=== PATIENT | female | born 1930 | race Caucasian/White ===

== ENCOUNTER 2018-02-21 12:13 | Emergency (ER) | payer MEDICARE ==
--- NOTE | 2018-02-21 13:10 | ED ---
Head Injury - HPI Summary HPI Summary: Patient is an 87-year-old female who presents emergency department for a fall and head injury that occurred roughly just prior to arrival. Patient resides at home by herself. Her daughter checks on her 3 times a day. Patient has a history of dementia and high blood pressure. Patient's daughter states she refuses to take her high blood pressure medications. Patient's daughter states that she brought patient breakfast this morning and went to work. She states that patient has not been sick recently and had no complaints this morning such as fever, chest pain, shortness of breath, lightheadedness, dizziness, abdominal pain, vomiting or diarrhea. She states that meals to [place] would have dropped off patient's unsure around 10:30. She believes patient fell shortly after as a bystander found her on the ground and called 911 shortly after that time. Patient was found outside underneath the carport. No report of loss of consciousness. Patient is unsure what happened or how she fell. Patient's daughter states it is not uncommon for patient not to remember fall. In the ER patient complains of head pain and low back pain. Symptoms are moderate in severity. Movement makes symptoms worse. Rest makes symptoms better. 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 Pain Intensity: 6 - Allergies/Home Medications Allergies/Adverse Reactions: Allergies Allergy/AdvReac Type Severity Reaction Status Date / Time No Known Allergies Allergy Verified 05/07/14 09:13 PMH/Surg Hx/FS Hx/Imm Hx Previously Healthy: Yes Musculoskeletal History: Denies: Other Musculoskeletal History - Surgical History Surgery Procedure, Year, and Place: TOTAL LEFT HIP Infectious Disease History: No Infectious Disease History: Denies: Traveled Outside the [place] in Last 30 Days - Social History Occupation: Retired Lives: Alone Alcohol Use: None Substance Use Type: Reports: None Smoking Status (MU): Never Smoked Tobacco Review of Systems Constitutional: Negative Negative: Fever, Chills Eyes: Negative ENT: Negative Cardiovascular: Negative Negative: Palpitations, Chest Pain Respiratory: Negative Negative: Shortness Of Breath, Cough Gastrointestinal: Negative Negative: Abdominal Pain, Vomiting, Diarrhea, Nausea Genitourinary: Negative Positive: Other - Low back pain Positive: Other - Posterior scalp lacertion Positive: Headache. Negative: Weakness, Paresthesia, Numbness, Syncope, Slurred Speech All Other Systems Reviewed And Are Negative: Yes Physical Exam Triage Information Reviewed: Yes Vital Signs On Initial Exam: Initial Vitals Temp Pulse Resp BP Pulse Ox 97.2 F 77 16 180/99 98 02/21/18 12:27 02/21/18 12:27 02/21/18 12:27 02/21/18 12:27 02/21/18 12:27 Vital Signs Reviewed: Yes Appearance: Positive: Thin - Patient sitting up in bed in no acute distress. Daughter present. Head/Face: Positive: Other - 1.5 cm, linear laceration noted to the mid aspect of the posterior scalp. Minimal active bleeding. Eyes: Positive: Normal Neck: Positive: Supple, Nontender Respiratory/Lung Sounds: Positive: Clear to Auscultation, Breath Sounds Present Cardiovascular: Positive: Normal, RRR Abdomen Description: Positive: Nontender, Soft Musculoskeletal: Positive: Other - Full strength and range of motion in all 4 extremities. Pain on palpation to the lumbar spine. Neurological: Positive: Normal, CN Intact II-III, Facial Symmetry, Speech Normal. Negative: Disoriented, Facial Droop, Slurred Speech, Dysphagia, Pronator Drift Present Psychiatric: Positive: Affect/Mood Appropriate Procedures - Laceration/Wound Repair 1 Location: head - Patient elected not to use local anesthetics given only a few guille. Description: Irregular Length, Depth and Shape: 1.5 cm irregular Betadine Prep?: No Irrigated w/ Saline (ccs): 50 Laceration/Wound Explored: clean Closure: Single Layer Suture Type: Other - 3 guille are used to approximate wound Layer Closure?: No Sterile Dressing Applied?: No Diagnostics - Vital Signs Vital Signs Temp Pulse Resp BP Pulse Ox 02/21/18 12:27 97.2 F 77 16 180/99 98 - Laboratory Result Diagrams: 02/21/18 13:11 02/21/18 13:11 Lab Statement: Any lab studies that have been ordered have been reviewed, and results considered in the medical decision making process. Head Injury Course/Dx Course Of Treatment: Patient presenting to the ER after an unwitnessed fall. Patient has history of dementia and is a poor historian. She is afebrile with stable vital signs. Pt.'s only complaints are headache and low back pain. We will obtain basic workup and imaging. Last tetanus immunization was last year. CBC shows mild elevation of WBC at 12.5. CMP is unremarkable. Negative troponin. Urinalysis is negative for infection. CT scans of the head, neck and lumbar spine show chronic changes without acute findings, reading per radiology. Chest x-ray is negative for acute findings, reading per radiology. EKG done at 1306 shows a sinus rhythm of 80 beats per min the left axis deviation, no ST elevation or depression, similar to prior tracing. Simple scalp laceration was repaired as noted above. On reexamination patient was sitting up, interactive. Results were discussed with patient's daughter. Pt.' s daughter is comfortable taking her home. Results discussed with Dr. Dominguez who agrees with discharging patient. Advised patient started to call PCP tomorrow for a close follow-up appointment. Suture removal in 5-7 days. To keep wound clean and dry. Can take Tylenol for pain as directed if needed. To return to ER if symptoms change or worsen. - Diagnoses Differential Diagnosis/HQI/PQRI: Cerebral Contusion, Cervical Sprain, Concussion With LOC, Concussion Without LOC, Hematoma, Intracranial Bleed, Laceration, Skull Fracture Provider Diagnoses: Fall, Scalp laceration, Lumbar strain Discharge - Sign-Out/Discharge Documenting (check all that apply): Discharge/Admit/Transfer - Discharge Plan Condition: Good Disposition: HOME Patient Education Materials: Fall Prevention for Older Adults (ED), Head Injury (ED), Low Back Strain (ED), Staple Care (ED) Referrals: Mynor Fam MD [Primary Care Provider] - Additional Instructions: Call PCP tomorrow for an appointment Keep wound clean and dry Staple removal in 5-7 days Apply ice intermittently Tylenol for pain as directed Return to ER if symptoms change or worsen - Billing Disposition and Condition Condition: GOOD Disposition: Home
[2018-02-21 13:22] LABS: ABS Basophils 0.1 10^3/ul (0-0.2); ABS Eosinophils 0 10^3/ul (0-0.6); ABS Monocytes 0.6 10^3/ul (0-0.8); ABS Neutrophils 10.8 10^3/ul (1.5-7.7); ABS Nucleated RBC 0 10^3/ul; Eosinophil % 0.3 % (0-6); Hematocrit 40 % (35-47); Hemoglobin 13.3 g/dl (12.0-16.0); Lymphocyte % 7.6 % (25-47); Mean Corpuscular HGB Conc 34 g/dl (31-36); Mean Corpuscular Hemoglobin 30 pg (27-31); Mean Corpuscular Volume 89 fL (80-97); Mean Platelet Volume 8.2 um3 (7.4-10.4); Nucleated Red Blood Cells % 0; Platelet Count 294 10^3/ul (150-450); Red Blood Count 4.45 10^6/ul (4.00-5.40); Red Cell Distribution Width 15 % (10.5-15); White Blood Count 12.5 10^3/ul (3.5-10.8)
[2018-02-21 13:51] LABS: EGFR Non-African American 87.4 (>60)
[2018-02-21 14:12] LABS: Urine Appearance Clear; Urine Blood Negative (Negative); Urine Color Yellow; Urine Ketones 1+ (Negative); Urine Protein Negative (Negative); Urine Specific Gravity 1.017 (1.010-1.030); Urine Urobilinogen Negative (Negative)
[2018-02-21] MEDS ORDERED: Lidocaine 2% W/EPI 1:100,000* 20 ML MDV INJ ONE (15:10)
--- NOTE | 2018-02-21 15:18 | RAD ---
Indication: Fall, head injury. CT of the brain was performed without IV contrast. Comparison is made with previous exam dated May 30, 2015. Ventricular structures are midline. No midline shift is noted. Central and cortical atrophy is noted. Periventricular lucency consistent with chronic ischemic white matter change is noted. There is no evidence of intracranial mass or hemorrhage. Mastoid air cells and paranasal sinuses are unremarkable. IMPRESSION: Chronic ischemic White matter change. There is no evidence of intracranial mass or hemorrhage. No acute changes are noted. No significant change is noted since May 30, 2015.
--- NOTE | 2018-02-21 15:21 | RAD ---
Indication: Neck injury. CT of the cervical spine was obtained in the axial plane. Sagittal and coronal reconstructed images were obtained. Mastoid air cells and skull base are unremarkable. The C1 ring is intact. There is no fracture. Degenerative changes of the atlantoaxial joint is noted. The C2 vertebra shows no fracture. No other bone or joint abnormality is noted. Degenerative disc disease at C2-C3 is noted. No fracture is identified. Prominent transverse foramen are noted at 4. No fractures identified. Degenerative disc disease at C5-C6, C6-C7 and C7-T1 is noted without fracture. IMPRESSION: No fracture of the cervical spine is noted.
--- NOTE | 2018-02-21 15:30 | RAD ---
INDICATION: Trauma. COMPARISON: Comparison is made with a prior CT of the lumbar spine from February 09, 2013 and a prior x-ray study of the lumbar spine from May 30, 2015. TECHNIQUE: Contiguous axial sections were obtained beginning above the T11 vertebra and continuing through the L5-S1 disc space. Images were reconstructed in the sagittal and coronal planes. FINDINGS: The vertebra are osteopenic and in normal alignment. There are [id number] compression fractures of the superior endplates of the T11, L2 and L3 vertebral bodies which are unchanged from the prior studies. No acute fracture is seen. At the L2-L3 level there is mild posterior endplate spurring and a mild broad-based disc bulge. There are mild hypertrophic changes within the facet joints and mild spinal canal narrowing. There is mild to moderate bilateral neural foraminal narrowing. The L3-L4 level there is a mild broad-based disc bulge and mild to moderate hypertrophic changes within the facet joints. There is mild to moderate spinal canal narrowing and mild bilateral neural foraminal narrowing. At the L4-L5 level there is a moderate broad-based disc bulge and moderate hypertrophic changes within the facet joints. There is moderate spinal canal narrowing and mild to moderate bilateral neural foraminal narrowing left greater than right. At the L5-S1 level there is a minimal broad-based disc bulge and moderate hypertrophic changes within the facet joints. No significant spinal canal narrowing is present. There is mild to moderate bilateral neural foraminal narrowing. IMPRESSION: 1. 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 2. MODERATE LUMBAR SPONDYLOSIS.
--- NOTE | 2018-02-21 15:42 | RAD ---
HISTORY: fall COMPARISONS: May 07, 2014 VIEWS: 1: frontal portable view of the chest at 3:34 PM FINDINGS: LINES AND TUBES: None. CARDIOMEDIASTINAL SILHOUETTE: The cardiomediastinal silhouette is normal for portable technique. PLEURA: The costophrenic angles are sharp. No pleural abnormalities are noted. LUNG PARENCHYMA: There is hyperinflation. ABDOMEN: The upper abdomen is clear. There is no subphrenic gas. BONES AND SOFT TISSUES: There is diffuse osteopenia. IMPRESSION: HYPERINFLATION. NO ACTIVE CARDIOPULMONARY DISEASE.
[2018-02-21] MEDS ORDERED: Lidocaine 2% EPI 1:200000 MPF*10-20 ML VIAL ONE (15:52)
[2018-02-21 19:27] VITALS: BP 179/123
== END 2018-02-21 17:05 | disposition home or self-care (01) ==
LOC: ED 12:13
DX: S01.01XA Laceration without foreign body of scalp, initial encounter (principal); S39.012A Strain of muscle, fascia and tendon of lower back, initial encounter; W19.XXXA Unspecified fall, initial encounter; F03.90 Unspecified dementia, unspecified severity, without behavioral disturbance, psychotic disturbance, mood disturbance, and anxiety; I10 Essential (primary) hypertension; Z91.14 Patient's other noncompliance with medication regimen; Z96.642 Presence of left artificial hip joint
CPT/HCPCS: 12001; 36415; 70450; 71045; 72125; 72131; 80053; 81003; 84484; 85025; 85610; 93005; 99283

== ENCOUNTER 2018-03-02 09:51 | Inpatient (IN) | payer MEDICARE ==
--- NOTE | 2018-03-02 10:54 | RAD ---
Indication: RIGHT hip pain post recent fall. Post LEFT hip replacement. Comparison: May 30, 2015 Technique: AP pelvis and AP and frog-leg lateral views RIGHT hip. Report: The RIGHT hip is normally located. No radiographic evidence for RIGHT hip or pelvic fracture or pelvic joint diastases. The RIGHT hip is remarkable for coxa profunda and moderate axial joint space narrowing as well as mild marginal osteophytosis. Unremarkable appearance of the partially visualized LEFT total hip prosthesis in the AP projection. Lumbar sacral spine degenerative spondylosis and facet joint osteoarthritis. Bilateral buttock injection granulomas noted. Unremarkable soft tissue contours. IMPRESSION: #. No radiographic evidence for RIGHT hip fracture. As x-rays may be negative with nondisplaced hip fracture if there is persistent clinical concern MRI or in setting of contraindication to MRI or limitation in emergent access to MRI CT would be suggested. #. Moderate osteoarthritis at the RIGHT hip.
--- OUTSIDE RECORDS SUMMARY | 2018-03-02 10:54 | XMS REPORT ---
:1930 External Reference #:[id number] Author Organization [facility] Address [address] [place] [address] Phone [phone] Care Team Providers Name Role Phone Mynor Fam MD Care Team Information Rn Prior Authorization Unavailable Mynor Fam MD Primary Care Physician Unavailable Payers Type Date Identification Numbers Payment Provider Subscriber Medicare Primary Policy Number: [id number] [place] Sk[place] Alexander PayID: [id number] [address] [place] [address] Medigap Part B Effective: Policy Number: [facility] Skyler Alexander 1995 [id number] Options Group Number: [id number] [id number] PayID: [id number] [place] [address] Problems Date Description Provider Status Onset: 07/06/2011 Glaucoma Mynor Fam M.D. Active Onset: 01/30/2013 Osteoporosis Mynor Fam M.D. Active Onset: 06/26/2015 Essential hypertension Mynor Fam M.D. Active Onset: 01/27/2010 Benign essential hypertension Olaf Tatum M.D. Inactive Inactive: 08/25/2017 Onset: 11/04/2011 Dizziness and giddiness Mynor Fam M.D. Inactive Inactive: 08/25/2017 Onset: 05/02/2012 Neck pain Mynor Fam M.D. Inactive Inactive: 08/25/2017 Onset: 09/12/2012 Chest pain Mynor Fam M.D. Inactive Inactive: 08/25/2017 Onset: 01/30/2013 Constipation Mynor Fam M.D. Inactive Inactive: 08/25/2017 Onset: 01/30/2013 Closed fracture of lumbar vertebra Mynor Fam M.D. Inactive without spinal cord injury Inactive: 08/25/2017 Onset: 10/02/2013 Arthralgia of the pelvic region and Mynor Fam M.D. Inactive thigh Inactive: 08/25/2017 Onset: 08/20/2014 Symptom of skin and integumentary Mynor Fam M.D. Inactive tissue Inactive: 08/25/2017 Onset: 12/05/2014 Amnesia Mynor Fam M.D. Inactive Inactive: 08/25/2017 Onset: 03/25/2015 Bite of nonvenomous arthropod Mynor Fam M.D. Inactive Inactive: 08/25/2017 Onset: 03/10/2017 Senile asthenia Mynor Fam M.D. Inactive Inactive: 08/25/2017 Onset: 03/10/2017 Hammer toe Mynor Fam M.D. Inactive Inactive: 08/25/2017 Onset: 03/10/2017 Headache Mynor Fam M.D. Inactive Inactive: 08/25/2017 Family History Date Family Member(s) Problem(s) Comments : (age 92 Years) Mother due to Natural Causes : (age 90 Years) First Brother due to PVD : (age 75 Years) Second Brother due to Natural Causes Social History Type Date Description Comments Living Situation Lives at home with assistance from family Cigarette Use Nonsmoker Smoking Patient has never smoked Allergies, Adverse Reactions, Alerts Date Description Reaction Status Severity Comments 11/04/2011 NKDA active 06/24/2012 Fabric Dryer Sheets active Medications Medication Date Status Form Strength Qnty SIG Indications Ordering Provider Multivitamin > 02/07/ Active Tablets 1 po qd Family 50 2011 [facility] Donepezil HCL 03/10/ Hx Tablets 5mg 30tab 1 by mouth Mynor Reese 2017 - s every day Cristel, M.DTomas 2016 Doxycycline 01/01/ Hx Capsules 100mg 2caps 2 tabs by Mynor Reese Hyclate 2017 - mouth Cristel, M.DTomas 2016 Zostavax 06/26/ Hx Solution [id number] 1dose inject Mynor F. 2014 - Rec 0.65ML [facility], M.D. 2018 Losartan 03/25/ Hx Tablets 25mg 90tab 1 by mouth Mynor F. Potassium 2014 - s every day [facility], M.D. 2017 Doxycycline 03/09/ Hx Capsules 100mg 28cap 1 by mouth Nati Hyclate 2014 - s every Christopher, 03/25/ morning, 1 COLD MEAT CHEF 2014 by mouth every evening Donepezil HCL 01/21/ Hx Tablets 5mg 30tab 1 by mouth Mynor F. 2014 - s every day [facility], M.D. 2014 Horizant 08/20/ Hx Tablets ER 600mg Mynor FTomas 2013 - [facility], M.D. 2013 Alendronate 08/20/ Hx Tablets 35mg 12tab 1 by mouth Mynor F. Sodium 2013 - s every week [facility], M.D. 2014 Zostavax 08/20/ Hx Solution [id number] 1dose inject Mynor F. 2013 - Rec 0.65ML [facility], M.D. 2014 Hydrocodone-Ac 06/08/ Hx Tablets 5-325mg 60tab 1 po 4h prn Mynor Reese etaminophen 2013 - s [facility], M.D. 2014 Lidoderm 06/08/ Hx Patches 5% 1Box apply for Mynor FTomas 2013 - 12 hours, [facility], 08/20/ take off M.D. 2013 for 12 hours Valtrex 05/08/ Hx Tablets 1gm 30tab 1 po tid 053.29 Mynor F. 2013 - s for 10 days [facility], M.D. 2013 Tramadol HCL 05/08/ Hx Tablets 50mg 20tab 1 po q6h Suri 2013 - s prn HUGH Kerr 2013 Physical 04/30/ Hx treatment Mynor F. Therapy 2013 - and [facility], 05/08/ evaluation M.D. 2013 balance problems Mupirocin 01/25/ Hx Ointment 2% 60mg apply 782.9 Ashley 2013 - topically Claudine, 05/08/ three times COLD MEAT CHEF 2013 a day to affected area(s) Doxycycline 04/25/ Hx Capsules 100mg 12cap 2 po one 911.4 Ashley Hyclate 2013 - s time for Claudine, 01/25/ tick bite COLD MEAT CHEF 2013 Doxycycline 06/28/ Hx Capsules 100mg 2caps 2 po x one E906.4 Manuela Hyclate 2012 - dose Eric, 06/30/ Afnp-C 2013 Medrol 04/11/ Hx Tablets 4mg 1tabs dose-pack Rasta Chester 2013 - as Gregory Posada 06/30/ instructed 2013 Tramadol HCL 02/20/ Hx Tablets 50mg 10tab 1 po q6h Mynor F. 2012 - s prn Shallish, 03/13/ M.D. 2013 Norvasc 02/20/ Hx Tablets 2.5mg 10tab 1 po qd Mynor F. 2012 - s Shallish, 06/30/ M.D. 2013 Senna/Docusate 01/30/ Hx Tablets 8.6-50mg 2 tablets Mynor F. Sodium 2013 - bid with Shalljaxon, 01/21/ full glass M.D. 2015 of water Miralax 01/30/ Hx Powder [id number] 510gm 17gm in 8 Mynor F. 2013 - oz water Shallish, 06/30/ daily M.D. 2012 Golytely 01/30/ Hx Solution 227.1gm 1unit 6-8 oz Mynor F. 2012 - Rec s every 15 Shallish, 06/30/ min until M.D. 2012 bowel movement Lidoderm 01/30/ Hx Patches 5% 1Box 10x14 Mynor F. 2012 - Shallish, 02/20/ M.D. 2012 Tramadol HCL 01/30/ Hx Tablets 50mg 20tab 1 po q6h Mynor F. 2012 - s prn Shallish, 02/20/ M.D. 2012 Alendronate 01/28/ Hx Tablets 70mg 12tab 1 po qweek Mynor F. Sodium 2012 - s Shallish, 06/30/ M.D. 2013 Medrol Dosepak 01/10/ Hx Tablets 4mg 1pack take as 719.46 Nati 2013 - directed Christopher, 01/30/ COLD MEAT CHEF 2012 Doxycycline 06/24/ Hx Capsules 100mg 2caps 2 po x one E906.4 Manuela Hyclate 2012 - dose Eric, 06/26/ Afnp-C 2011 Prednisone 06/06/ Hx Tablets 20mg 20tab 3 po qd x3 Mynor FTomas 2012 - s days then 2 Shallish, 09/12/ po qd x 3 M.D. 2013 days then 1 po qd x 3 days then 1/2 qd x 4 Doxycycline 02/07/ Hx Capsules 100mg 2caps 2 po today. E906.4 Korina Franco 2012 - Flower, 05/02/ M.D. 2012 Doxycycline 11/18/ Hx Tablets 100mg 2tabs take 2 Mynor F. Hyclate 2011 - pills Shallish, 11/21/ M.D. 2011 Eye gtts 11/03/ Hx Tablets 1 ea eye qd Family 2011 - or prn dry Medicine 06/30/ eyes [facility] Ocuvite 11/03/ Hx Tablets as directed [facility] 2012 - Medicine 12/31/ [facility] 2016 [facility] Mometasone 02/10/ Hx Cream 0.1% 45gm apply tid Mynor F. Furoate 2010 - prn Shallish, 07/06/ M.D. 2010 Valtrex 06/08/ Hx Tablets 1gm 30tab 1 po tid 053.29 Korina Mohamud 2009 - s for 10 days Flower, 08/18/ M.D. 2009 Amlodipine 12/25/ Hx Tablets 2.5mg 90tab Take 1 Suri Besylate 2009 - s Tablet By HUGH Kerr 12/05/ Mouth One 2015 Time Daily as Directed Darvon 07/16/ Hx Capsules 65mg [facility] 2008 - Medicine 01/27/ [facility] Zithromax 03/29/ Hx Tablets 250mg 6tabs 2 po qd x1 Mynor FTomas Z-Elliot 2009 - day, then 1 Shallish, 04/15/ po qd M.D. 2009 Keflex 03/01/ Hx Capsules 500mg 20cap 1 po bid Olaf Burk 2008 - s Midura, 11/06/ M.D. 2009 Doxycycline 01/29/ Hx Capsules 100mg 2caps 2 tabs po 782.9 Olaf Franco 2008 - times one Midrell, 08/18/ M.D. 2010 Fibercon 06/16/ Hx 4 500mg [facility] 2007 - Medicine 03/29/ [facility] 2009 [facility] Glucosamine/ 03/23/ Hx 750mg 0unit 1 PO qd [facility] 2007 - s Medicine 08/25/ [facility] 2017 [facility] Medrol Dose 03/17/ Hx Tablets 4mg 1tabs use as 782.1 Manuela Zarate 2006 - directed Eric, 03/23/ Afnp-C 2007 Clarinex 03/17/ Hx Samples 5mg 5unit 1 po qd 782.1 Manuela 2006 - s Eric, 03/23/ Afnp-C 2007 Amoxicillin 11/18/ Hx Capsules 250mg 30cap 1 PO tid Lawrence Samson 2005 - s Breimafranko, 04/30/ M.D. 2005 Note 03/18/ Hx please DO a Lawrence Samson 2003 - routeressa Roblero, 11/11/ screening M.D. 2004 mammo on PT Keflex 12/07/ Hx Tabs 250mg 15tab 1 PO tid Lawrence Samson 2002 - s Mignonimafranko, 11/11/ M.D. 2005 Prednisone 12/07/ Hx 20 30uni as Directed Lawrence Samson 2002 - ts Breimafranko, 11/11/ M.D. 2004 Doxycycline 02/17/ Hx 100mg 20uni 1 po bid Lawrence Samson 2000 - ts Breiman, 12/25/ M.D. 2009 Amoxicillin 01/13/ Hx 250mg 30uni 1 po tid Lawrence Samson 1998 - ts Breiman, 08/02/ M.D. 2004 Amoxicillin 07/25/ Hx Tablets 500mg 30tab 1 Tablet 3 Olaf TTomas 1996 - s Times [facility], M.D. 1998 Amoxicillin / Hx Capsules 30cap 1 PO qid Unknown 0000 - s 2007 Timolol / Hx Solution 0.5% 1 gtt od Unknown Maleate 0000 - bid 2009 Hydrocodone/Ac / Hx Tablets 5-325mg 60tab 1 po 4h prn Mynor F. etaminophen 0000 - s Cristel, M.D. 2014 Gabapentin / Hx Capsules 100mg 120ca 1 by mouth Mynor F. 0000 - ps twice a day Cristel, M.D. 2014 Immunizations CPT Code Status Date Vaccine Lot # [id number] Given 08/25/2017 Pneumococcal Immunization [id number] 24857 Given 08/25/2017 Tdap Tetanus, W Pertussis [id number] 04823 Given 06/28/2017 High-Dose, Influenza Virus Vacccine-fluzone 65 and [id number] older 17586 Given 09/18/2016 Zostivax 46299 Given 06/14/2016 High-Dose, Influenza Virus Vacccine-fluzone 65 and [id number] older 76514 Given 07/18/2015 Pneumococcal Conjugate Vacc-13 [id number] 20975 Given 06/26/2015 High-Dose, Influenza Virus Vacccine-fluzone 65 and [id number] older 68599 Given 08/20/2014 High-Dose, Influenza Virus Vacccine-fluzone 65 and [id number] older 60669 Given 06/30/2013 High-Dose, Influenza Virus Vacccine-fluzone 65 and [id number] older Q2037 Given 08/16/2012 Split Influenza Medicare: Fluvirin [id number] Vital Signs Date Vital Result Comment 03/02/2018 BP Systolic 150 mmHg BP Diastolic 100 mmHg Heart Rate 68 /min Body Temperature 97.7 F Height 53.5 inches 4'5.50" measured 08/25/2017 BP Systolic 140 mmHg BP Diastolic 90 mmHg Heart Rate 76 /min Body Temperature 97.3 F Height 53.5 inches 4'5.50" measured Weight 102.00 lb BMI (Body Mass Index) 25.1 kg/m2 03/10/2017 BP Systolic 130 mmHg BP Diastolic 80 mmHg Heart Rate 70 /min Respiratory Rate 16 /min Height 53.5 inches 4'5.50" measured Weight 102.00 lb BMI (Body Mass Index) 25.1 kg/m2 09/02/2016 BP Systolic 124 mmHg BP Diastolic 78 mmHg Heart Rate 96 /min Body Temperature 97.9 F Respiratory Rate 16 /min Height 53.5 inches 4'5.50" measured Weight 103.00 lb BMI (Body Mass Index) 25.3 kg/m2 04/27/2016 BP Systolic 122 mmHg BP Diastolic 76 mmHg Heart Rate 96 /min Body Temperature 99.0 F Respiratory Rate 16 /min Height 53.5 inches 4'5.50" measured Weight 104.25 lb BMI (Body Mass Index) 25.6 kg/m2 01/01/2016 BP Systolic 150 mmHg BP Diastolic 84 mmHg Heart Rate 82 /min Body Temperature 97.9 F Respiratory Rate 16 /min Height 53.5 inches 4'5.50" measured Weight 105.00 lb BMI (Body Mass Index) 25.8 kg/m2 06/26/2015 BP Systolic 142 mmHg BP Diastolic 82 mmHg Heart Rate 86 /min Body Temperature 98.1 F Respiratory Rate 16 /min Height 53.5 inches 4'5.50" measured Weight 101.25 lb BMI (Body Mass Index) 24.9 kg/m2 03/25/2015 BP Systolic 132 mmHg BP Diastolic 70 mmHg Heart Rate 76 /min Body Temperature 98.7 F Respiratory Rate 17 /min Height 53.5 inches 4'5.50" measured Weight 102.00 lb BMI (Body Mass Index) 25.1 kg/m2 03/12/2015 BP Systolic 138 mmHg BP Diastolic 90 mmHg Heart Rate 78 /min Body Temperature 98.2 F Respiratory Rate 18 /min Height 53.5 inches 4'5.50" measured Weight 104.00 lb BMI (Body Mass Index) 25.5 kg/m2 01/21/2015 BP Systolic 140 mmHg BP Diastolic 90 mmHg Heart Rate 72 /min Body Temperature 99.1 F Respiratory Rate 16 /min Height 53.5 inches 4'5.50" measured Weight 103.12 lb BMI (Body Mass Index) 25.3 kg/m2 12/05/2014 BP Systolic 124 mmHg BP Diastolic 72 mmHg Heart Rate 78 /min Body Temperature 98.7 F Respiratory Rate 16 /min Height 53.5 inches 4'5.50" measured Weight 103.00 lb BMI (Body Mass Index) 25.3 kg/m2 11/21/2014 BP Systolic 130 mmHg BP Diastolic 80 mmHg Heart Rate 88 /min Body Temperature 98.9 F Respiratory Rate 18 /min Height 53.5 inches 4'5.50" measured Weight 103.25 lb BMI (Body Mass Index) 25.4 kg/m2 08/20/2014 BP Systolic 130 mmHg BP Diastolic 90 mmHg Heart Rate 80 /min Respiratory Rate 16 /min Height 53.5 inches 4'5.50" measured Weight 103.00 lb BMI (Body Mass Index) 25.3 kg/m2 05/24/2014 BP Systolic 144 mmHg BP Diastolic 92 mmHg Heart Rate 72 /min Body Temperature 98.5 F Respiratory Rate 16 /min Height 54.5 inches 4'6.50" Weight 100.00 lb BMI (Body Mass Index) 23.7 kg/m2 05/08/2014 BP Systolic 122 mmHg BP Diastolic 92 mmHg Heart Rate 88 /min Body Temperature 99.0 F Respiratory Rate 16 /min Height 54.5 inches 4'6.50" Weight 102.12 lb BMI (Body Mass Index) 24.2 kg/m2 04/30/2014 BP Systolic 144 mmHg BP Diastolic 80 mmHg Heart Rate 64 /min Body Temperature 99.0 F Respiratory Rate 16 /min Height 54.5 inches 4'6.50" Weight 103.00 lb BMI (Body Mass Index) 24.4 kg/m2 01/25/2014 BP Systolic 122 mmHg BP Diastolic 80 mmHg Heart Rate 60 /min Body Temperature 98.0 F Respiratory Rate 18 /min Height 54.5 inches 4'6.50" Weight 106.00 lb BMI (Body Mass Index) 25.1 kg/m2 12/28/2013 BP Systolic 140 mmHg BP Diastolic 80 mmHg Heart Rate 72 /min Body Temperature 98.7 F Respiratory Rate 16 /min Height 54.5 inches 4'6.50" Weight 103.00 lb BMI (Body Mass Index) 24.4 kg/m2 10/02/2013 BP Systolic 140 mmHg BP Diastolic 80 mmHg Heart Rate 76 /min Body Temperature 98.5 F Respiratory Rate 16 /min Height 54.5 inches 4'6.50" Weight 108.00 lb BMI (Body Mass Index) 25.6 kg/m2 06/30/2013 BP Systolic 138 mmHg BP Diastolic 80 mmHg Heart Rate 68 /min Body Temperature 97.7 F Respiratory Rate 16 /min Height 54.5 inches 4'6.50" Weight 106.00 lb BMI (Body Mass Index) 25.1 kg/m2 06/28/2013 BP Systolic 140 mmHg BP Diastolic 92 mmHg Heart Rate 72 /min Body Temperature 98.3 F Respiratory Rate 16 /min Height 54.5 inches 4'6.50" Weight 106.00 lb BMI (Body Mass Index) 25.1 kg/m2 03/13/2013 BP Systolic 162 mmHg BP Diastolic 92 mmHg Heart Rate 68 /min Body Temperature 98.1 F Respiratory Rate 16 /min Height 54.5 inches 4'6.50" Weight 106.00 lb BMI (Body Mass Index) 25.1 kg/m2 02/20/2013 BP Systolic 146 mmHg BP Diastolic 110 mmHg Heart Rate 90 /min Body Temperature 100.9 F Respiratory Rate 16 /min Height 54.5 inches 4'6.50" Weight 106.12 lb BMI (Body Mass Index) 25.1 kg/m2 01/30/2013 BP Systolic 132 mmHg BP Diastolic 90 mmHg Heart Rate 78 /min Body Temperature 98.1 F Respiratory Rate 18 /min Height 54.5 inches 4'6.50" Weight 107.00 lb BMI (Body Mass Index) 25.3 kg/m2 01/10/2013 BP Systolic 140 mmHg BP Diastolic 90 mmHg Heart Rate 76 /min Body Temperature 98.8 F Respiratory Rate 18 /min Height 54.5 inches 4'6.50" Weight 108.00 lb BMI (Body Mass Index) 25.6 kg/m2 12/19/2012 BP Systolic 140 mmHg BP Diastolic 90 mmHg Heart Rate 72 /min Body Temperature 97.8 F Respiratory Rate 16 /min Height 54.5 inches 4'6.50" Weight 109.00 lb BMI (Body Mass Index) 25.8 kg/m2 09/19/2012 BP Systolic 120 mmHg BP Diastolic 76 mmHg Heart Rate 80 /min Body Temperature 98.4 F Height 59 inches 4'11" Weight 109.00 lb BMI (Body Mass Index) 22.0 kg/m2 09/12/2012 BP Systolic 140 mmHg BP Diastolic 92 mmHg Heart Rate 72 /min Body Temperature 97.9 F Height 59 inches 4'11" Weight 106.00 lb BMI (Body Mass Index) 21.4 kg/m2 06/24/2012 BP Systolic 130 mmHg BP Diastolic 82 mmHg Heart Rate 78 /min Body Temperature 98.4 F Height 59 inches 4'11" Weight 105.00 lb BMI (Body Mass Index) 21.2 kg/m2 06/06/2012 BP Systolic 130 mmHg BP Diastolic 80 mmHg Heart Rate 80 /min Body Temperature 97.8 F Respiratory Rate 18 /min Height 59 inches 4'11" Weight 106.00 lb BMI (Body Mass Index) 21.4 kg/m2 05/02/2012 BP Systolic 130 mmHg BP Diastolic 80 mmHg Heart Rate 72 /min Body Temperature 98.4 F Respiratory Rate 20 /min Height 59 inches 4'11" Weight 106.00 lb BMI (Body Mass Index) 21.4 kg/m2 02/08/2012 BP Systolic 116 mmHg BP Diastolic 76 mmHg Heart Rate 66 /min Body Temperature 98.2 F Height 59 inches 4'11" Weight 107.00 lb BMI (Body Mass Index) 21.6 kg/m2 12/28/2011 BP Systolic 140 mmHg BP Diastolic 80 mmHg Heart Rate 78 /min Body Temperature 98.5 F Respiratory Rate 20 /min Height 59 inches 4'11" Weight 104.00 lb BMI (Body Mass Index) 21.0 kg/m2 11/04/2011 BP Systolic 124 mmHg BP Diastolic 84 mmHg Heart Rate 72 /min Body Temperature 98.2 F Height 59 inches 4'11" Weight 106.00 lb BMI (Body Mass Index) 21.4 kg/m2 07/06/2011 BP Systolic 112 mmHg BP Diastolic 68 mmHg Heart Rate 68 /min Body Temperature 98.2 F Respiratory Rate 20 /min Height 59 inches 4'11" Weight 108.00 lb BMI (Body Mass Index) 21.8 kg/m2 03/04/2011 BP Systolic 150 mmHg BP Diastolic 84 mmHg Heart Rate 72 /min Body Temperature 97.9 F Height 59 inches 4'11" Weight 103.00 lb BMI (Body Mass Index) 20.8 kg/m2 11/26/2010 BP Systolic 160 mmHg BP Diastolic 100 mmHg Heart Rate 72 /min Respiratory Rate 16 /min Height 59 inches 4'11" Weight 107.00 lb BMI (Body Mass Index) 21.6 kg/m2 09/22/2010 BP Systolic 130 mmHg BP Diastolic 90 mmHg Heart Rate 68 /min Body Temperature 97.5 F Respiratory Rate 16 /min Height 59 inches 4'11" Weight 111.00 lb BMI (Body Mass Index) 22.4 kg/m2 08/18/2010 BP Systolic 120 mmHg BP Diastolic 80 mmHg Heart Rate 76 /min Body Temperature 97.4 F Height 59 inches 4'11" Weight 111.00 lb BMI (Body Mass Index) 22.4 kg/m2 07/20/2010 BP Systolic 150 mmHg BP Diastolic 100 mmHg Heart Rate 72 /min Body Temperature 97.8 F Respiratory Rate 14 /min Height 59 inches 4'11" Weight 112.00 lb BMI (Body Mass Index) 22.6 kg/m2 06/08/2010 BP Systolic 160 mmHg BP Diastolic 100 mmHg Heart Rate 102 /min Body Temperature 100.6 F Height 59 inches 4'11" Weight 112.00 lb BMI (Body Mass Index) 22.6 kg/m2 06/04/2010 BP Systolic 132 mmHg BP Diastolic 82 mmHg Heart Rate 76 /min Height 59 inches 4'11" Weight 112.00 lb BMI (Body Mass Index) 22.6 kg/m2 03/03/2010 BP Systolic 140 mmHg BP Diastolic 90 mmHg Heart Rate 66 /min Body Temperature 99.5 F Height 59 inches 4'11" Weight 112.00 lb BMI (Body Mass Index) 22.6 kg/m2 01/27/2010 BP Systolic 150 mmHg BP Diastolic 80 mmHg Heart Rate 64 /min Body Temperature 99.0 F Height 59 inches 4'11" Weight 112.00 lb BMI (Body Mass Index) 22.6 kg/m2 12/30/2009 BP Systolic 162 mmHg BP Diastolic 100 mmHg Heart Rate 71 /min Body Temperature 98.0 F Height 59 inches 4'11" Weight 115.00 lb BMI (Body Mass Index) 23.2 kg/m2 12/25/2009 BP Systolic 160 mmHg BP Diastolic 110 mmHg Heart Rate 82 /min Body Temperature 98.3 F Height 59 inches 4'11" Weight 115.00 lb BMI (Body Mass Index) 23.2 kg/m2 07/16/2009 BP Systolic 160 mmHg BP Diastolic 100 mmHg Heart Rate 88 /min Body Temperature 99.3 F Weight 115.00 lb 04/15/2009 BP Systolic 150 mmHg BP Diastolic 88 mmHg O2 % BldC Oximetry 96 % Weight 112.00 lb 03/29/2009 BP Systolic 150 mmHg BP Diastolic 90 mmHg Heart Rate 72 /min Body Temperature 98.9 F Height 59 inches 4'11" Weight 113.00 lb BMI (Body Mass Index) 22.8 kg/m2 11/20/2008 BP Systolic 146 mmHg BP Diastolic 88 mmHg Heart Rate 80 /min Body Temperature 98.6 F Height 146 inches Weight 115.00 lb BMI (Body Mass Index) 3.8 kg/m2 11/06/2008 BP Systolic 176 mmHg BP Diastolic 90 mmHg Heart Rate 80 /min Body Temperature 97.6 F 03/01/2008 BP Systolic 124 mmHg BP Diastolic 78 mmHg Heart Rate 78 /min Body Temperature 99.2 F Height 59 inches 4'11" Weight 120.00 lb BMI (Body Mass Index) 24.2 kg/m2 01/30/2008 BP Systolic 142 mmHg BP Diastolic 88 mmHg Heart Rate 84 /min Body Temperature 99.4 F Height 59 inches 4'11" Weight 121.00 lb BMI (Body Mass Index) 24.4 kg/m2 06/16/2007 BP Systolic 110 mmHg BP Diastolic 70 mmHg Heart Rate 68 /min Body Temperature 98.6 F Height 59 inches 4'11" Weight 115.00 lb BMI (Body Mass Index) 23.2 kg/m2 03/23/2007 BP Systolic 120 mmHg BP Diastolic 80 mmHg Heart Rate 72 /min Body Temperature 99.0 F Height 59 inches 4'11" Weight 118.00 lb BMI (Body Mass Index) 23.8 kg/m2 03/17/2006 BP Systolic 122 mmHg BP Diastolic 82 mmHg Heart Rate 76 /min Body Temperature 99.0 F Height 59 inches 4'11" Weight 120.00 lb BMI (Body Mass Index) 24.2 kg/m2 11/11/2004 BP Systolic 160 mmHg BP Diastolic 90 mmHg Heart Rate 64 /min Height 59 inches 4'11" Weight 115.00 lb BMI (Body Mass Index) 23.2 kg/m2 12/07/2002 BP Systolic 140 mmHg BP Diastolic 80 mmHg Heart Rate 80 /min Body Temperature 99.1 F Height 59 inches 4'11" Weight 122.00 lb BMI (Body Mass Index) 24.6 kg/m2 05/16/2002 BP Systolic 124 mmHg BP Diastolic 80 mmHg Heart Rate 68 /min Height 59 inches 4'11" Weight 122.00 lb BMI (Body Mass Index) 24.6 kg/m2 05/17/2001 BP Systolic 150 mmHg BP Diastolic 90 mmHg Body Temperature 98.9 F Height 59 inches 4'11" Weight 125.00 lb BMI (Body Mass Index) 25.2 kg/m2 02/17/2001 BP Systolic 134 mmHg BP Diastolic 78 mmHg Heart Rate 80 /min Body Temperature 98.2 F Height 59 inches 4'11" Weight 123.00 lb BMI (Body Mass Index) 24.8 kg/m2 12/07/1999 BP Systolic 146 mmHg BP Diastolic 84 mmHg Body Temperature 97.4 F Height 59 inches 4'11" Weight 123.00 lb BMI (Body Mass Index) 24.8 kg/m2 01/13/1999 BP Systolic 148 mmHg BP Diastolic 90 mmHg Height 59 inches 4'11" Weight 123.00 lb 07/25/1997 BP Systolic 110 mmHg BP Diastolic 78 mmHg Body Temperature 99.1 F Weight 126.00 lb Results Test Date Test Result H/L Range Note CBC Auto Diff 02/21/2018 White Blood Count 12.5 10^3/uL High 3.5-10.8 Red Blood Count 4.45 10^6/uL 4.00-5.40 Hemoglobin 13.3 g/dL 12.0-16.0 Hematocrit 40 % 35-47 Mean Corpuscular Volume 89 fL 80-97 Mean Corpuscular Hemoglobin 30 pg 27-31 Mean Corpuscular HGB Conc 34 g/dL 31-36 Red Cell Distribution Width 15 % 10.5-15 Platelet Count 294 10^3/uL 150-450 Mean Platelet Volume 8.2 um3 7.4-10.4 Abs Neutrophils 10.8 10^3/uL High 1.5-7.7 Abs Lymphocytes 1.0 10^3/uL 1.0-4.8 Abs Monocytes 0.6 10^3/uL 0-0.8 Abs Eosinophils 0 10^3/uL 0-0.6 Abs Basophils 0.1 10^3/uL 0-0.2 Abs Nucleated RBC 0 10^3/uL Granulocyte % 86.5 % High 38-83 Lymphocyte % 7.6 % Low 25-47 Monocyte % 5.1 % 0-7 Eosinophil % 0.3 % 0-6 Basophil % 0.5 % 0-2 Nucleated Red Blood Cells % 0 Inr/Protime 02/21/2018 Inr 1.00 0.77-1.02 Urinalysis Profile 02/21/2018 Urine Color Yellow Urine Appearance Clear Urine Specific [place] 1.017 1.010-1.030 Urine pH 6.0 5-9 Urine Urobilinogen Negative Negative Urine Ketones 1+ Negative Urine Protein Negative Negative Urine Leukocytes Negative Negative Urine Blood Negative Negative Urine Nitrite Negative Negative Urine Bilirubin Negative Negative Urine Glucose Negative Negative Comp Metabolic Panel 02/21/2018 Sodium 138 mmol/L 135-145 Potassium 3.7 mmol/L 3.5-5.0 Chloride 106 mmol/L 101-111 Co2 Carbon Dioxide 21 mmol/L Low 22-32 Anion Gap 11 mmol/L 2-11 Glucose 103 mg/dL High 70-100 Blood Urea Nitrogen 21 mg/dL 6-24 Creatinine 0.64 mg/dL 0.51-0.95 BUN/Creatinine Ratio 32.8 High 8-20 Calcium 8.8 mg/dL 8.6-10.3 Total Protein 6.5 g/dL 6.4-8.9 Albumin 3.6 g/dL 3.2-5.2 Globulin 2.9 g/dL 2-4 Albumin/Globulin Ratio 1.2 1-3 Total Bilirubin 0.40 mg/dL 0.2-1.0 Alkaline Phosphatase 58 U/L 34-104 Alt 17 U/L 7-52 Ast 19 U/L 13-39 Egfr Non- 87.4 >60 Egfr 112.4 >60 1 Laboratory test finding 02/21/2018 Troponin I 0.00 ng/mL <0.04 Comprehensive Metabolic Prof 08/25/2017 Sodium 141 mEq/L 134-149 Potassium 3.8 mEq/L 3.6-5.5 Chloride 104 mEq/L 94-112 Carbon Dioxide 28 mEq/L 21-32 Glucose 85 mg/dL 70-105 BUN 19 mg/dL 6-26 Creatinine 0.7 mg/dL 0.6-1.4 BUN/Creat Ratio 27.1 CALC 8.0-36.0 Calcium 9.6 mg/dL 8.6-10.2 Total Protein 6.9 g/dL 6.4-8.3 Albumin 4.4 g/dL 3.8-5.5 Globulin 2.5 g/dL 2.0-4.8 A/G Ratio 1.8 CALC 0.6-2.3 Alk. Phosphatase 70 U/L 30-110 Alt (SGPT) 11 U/L 7-35 Ast (Sgot) 12 U/L 5-34 Total Bilirubin 0.6 mg/dL 0.2-1.3 GFR Non- >60 ml/min/1.73m^ >=60 GFR >60 ml/min/1.73m^ >=60 Complete Blood Count 08/25/2017 WBC 6.9 x10^3/UL 3.6-9.6 RBC 4.79 x10^6/UL 3.90-5.70 HGB 14.3 g/dL 12.1-17.2 HCT 43 % 36-50 MCV 89.0 fL 82.2-97.4 MCH 29.8 pg 27.6-33.3 MCHC 33.6 g/dL 33.0-35.5 RDW 14.3 % High 11.6-13.7 PLT 345 x10^3/UL 150-400 MPV 7.9 fL 7.4-10.4 Gran # 4.7 x10^3/UL 1.5-7.2 Lymph# 1.8 x10^3/UL 0.7-4.9 Dickinson# 0.4 x10^3/UL 0.1-0.9 Gran % 67.2 % 42.2-75.2 Lymph % 26.6 % 20.5-51.1 Dickinson% 6.2 % 1.7-9.3 Laboratory test finding 08/25/2017 TSH 2.76 mIU/L 0.50-6.00 Laboratory test finding 03/10/2017 Sedimentation Rate 10mm Comprehensive Metabolic Prof 03/10/2017 Sodium 140 mEq/L 134-149 Potassium 3.9 mEq/L 3.6-5.5 Chloride 100 mEq/L 94-112 Carbon Dioxide 28 mEq/L 21-32 Glucose 58 mg/dL Low 70-105 2 BUN 22 mg/dL 6-26 Creatinine 0.7 mg/dL 0.6-1.4 BUN/Creat Ratio 31.4 CALC 8.0-36.0 Calcium 9.4 mg/dL 8.6-10.2 Total Protein 6.8 g/dL 6.4-8.3 Albumin 4.2 g/dL 3.8-5.5 Globulin 2.6 g/dL 2.0-4.8 A/G Ratio 1.6 CALC 0.6-2.3 Alk. Phosphatase 70 U/L 30-110 Alt (SGPT) 13 U/L 7-35 Ast (Sgot) 14 U/L 5-34 Total Bilirubin 0.4 mg/dL 0.2-1.3 GFR Non- >60 ml/min/1.73m^ >=60 GFR >60 ml/min/1.73m^ >=60 Complete Blood Count 03/10/2017 WBC 6.5 x10^3/UL 3.6-9.6 RBC 4.88 x10^6/UL 3.90-5.70 HGB 14.5 g/dL 12.1-17.2 HCT 44 % 36-50 MCV 89.0 fL 82.2-97.4 MCH 29.6 pg 27.6-33.3 MCHC 33.2 g/dL 33.0-35.5 RDW 14.2 % High 11.6-13.7 PLT 370 x10^3/UL 150-400 MPV 7.4 fL 7.4-10.4 Gran # 4.0 x10^3/UL 1.5-7.2 Lymph# 2.1 x10^3/UL 0.7-4.9 Dickinson# 0.4 x10^3/UL 0.1-0.9 Gran % 59.9 % 42.2-75.2 Lymph % 33.5 % 20.5-51.1 Dickinson% 6.6 % 1.7-9.3 Laboratory test finding 03/10/2017 TSH 2.25 mIU/L 0.50-6.00 Laboratory test finding 09/02/2016 Free T4 1.47 ng/dL 0.75-1.54 TSH 1.78 mIU/L 0.50-6.00 Complete Blood Count 09/02/2016 WBC 7.7 x10^3/UL 3.6-9.6 RBC 5.01 x10^6/UL 3.90-5.70 HGB 15.1 g/dL 12.1-17.2 HCT 44 % 36-50 MCV 88.0 fL 82.2-97.4 MCH 30.2 pg 27.6-33.3 MCHC 34.2 g/dL 33.0-35.5 RDW 14.1 % High 11.6-13.7 PLT 327 x10^3/UL 150-400 MPV 7.0 fL Low 7.4-10.4 Gran # 5.2 x10^3/UL 1.5-7.2 Lymph# 2.0 x10^3/UL 0.7-4.9 Dickinson# 0.5 x10^3/UL 0.1-0.9 Gran % 66.0 % 42.2-75.2 Lymph % 26.7 % 20.5-51.1 Dickinson% 7.3 % 1.7-9.3 Comprehensive Metabolic Prof 09/02/2016 Sodium 139 mEq/L 134-149 Potassium 5.1 mEq/L 3.6-5.5 Chloride 99 mEq/L 94-112 Carbon Dioxide 28 mEq/L 21-32 Glucose 78 mg/dL 70-105 BUN 20 mg/dL 6-26 Creatinine 0.6 mg/dL 0.6-1.4 BUN/Creat Ratio 33.3 CALC 8.0-36.0 Calcium 9.9 mg/dL 8.6-10.2 Total Protein 7.3 g/dL 6.4-8.3 Albumin 4.4 g/dL 3.8-5.5 Globulin 2.9 g/dL 2.0-4.8 A/G Ratio 1.5 CALC 0.6-2.3 Alk. Phosphatase 84 U/L 30-110 Alt (SGPT) 15 U/L 7-35 Ast (Sgot) 19 U/L 5-34 Total Bilirubin 0.5 mg/dL 0.2-1.3 GFR Non- >60 ml/min/1.73m^ >=60 GFR >60 ml/min/1.73m^ >=60 Ua - Micro ([facility]ma) 01/01/2016 Appearance CLEAR Color YELLOW Glucose, Urine ([facility]ma/CMC/CTX) NEG Bilirubin NEG Ketones NEG SP Grav 1.025 Blood TRACE-INTACT PH 7.0 Protein NEG Urobil 0.2 Nitrite NEG Leukocytes ([facility]ma/CMC/[facility]) SMALL Hyaline - /Lpf Granular - /Lpf WBC ([facility]ma,[facility]) 3-5 RBC 1-2 Mucus - /Lpf Epith RARE /Lpf Bacteria TRACE /Hpf Amorphous SMALL AMOUNT /Lpf Crystals, Fluid ([facility]ma/CMC/CTX) - Z#Comments - Comprehensive Metabolic Prof 01/01/2016 Sodium 137 mEq/L 134-149 Potassium 4.1 mEq/L 3.6-5.5 Chloride 98 mEq/L 94-112 Carbon Dioxide 27 mEq/L 21-32 Glucose 85 mg/dL 70-105 BUN 13 mg/dL 6-26 Creatinine 0.6 mg/dL 0.6-1.4 BUN/Creat Ratio 21.7 CALC 8.0-36.0 Calcium 10.1 mg/dL 8.6-10.2 Total Protein 6.7 g/dL 6.4-8.3 Albumin 4.1 g/dL 3.8-5.5 Globulin 2.6 g/dL 2.0-4.8 A/G Ratio 1.6 CALC 0.6-2.3 Alk. Phosphatase 63 U/L 30-110 Alt (SGPT) 17 U/L 7-35 Ast (Sgot) 20 U/L 5-34 Total Bilirubin 0.4 mg/dL 0.2-1.3 GFR Non- >60 ml/min/1.73m^ >=60 GFR >60 ml/min/1.73m^ >=60 Complete Blood Count 01/01/2016 WBC 8.8 x10^3/UL 3.6-9.6 RBC 4.57 x10^6/UL 3.90-5.70 HGB 13.9 g/dL 12.1-17.2 HCT 42 % 36-50 MCV 91.0 fL 82.2-97.4 MCH 30.4 pg 27.6-33.3 MCHC 33.3 g/dL 33.0-35.5 RDW 14.0 % High 11.6-13.7 PLT 338 x10^3/UL 150-400 MPV 7.8 fL 7.4-10.4 Gran # 6.6 x10^3/UL 1.5-7.2 Lymph# 1.7 x10^3/UL 0.7-4.9 Dickinson# 0.5 x10^3/UL 0.1-0.9 Gran % 73.9 % 42.2-75.2 Lymph % 20.2 % Low 20.5-51.1 Dickinson% 5.9 % 1.7-9.3 Laboratory test finding 01/01/2016 Free T4 1.27 ng/dL 0.75-1.54 TSH 1.90 mIU/L 0.50-6.00 Lyme Igg/M W/Reflx [place] 03/25/2015 Lyme IgG/IgM Ab <0.91 ISR 0.00-0.90 3 Lyme Disease Ab, Quant, IgM <0.80 index 0.00-0.79 4 Ict-Hemoccult (MCR)Fma Screeni 03/18/2015 Ict Hemoccult (1) 02/24/15 NEG Ict Hemoccult-(2) 02/25/15 NEG Ict-Hemoccult (3) 02/26/15 NEG Comprehensive Metabolic Prof 11/21/2014 Sodium 142 mEq/L 134-149 Potassium 4.5 mEq/L 3.6-5.5 Chloride 104 mEq/L 94-112 Carbon Dioxide 29 mEq/L 21-32 Glucose 87 mg/dL 70-105 BUN 25 mg/dL 6-26 Creatinine 0.7 mg/dL 0.6-1.4 BUN/Creat Ratio 35.7 CALC 8.0-36.0 Calcium 10.1 mg/dL 8.6-10.2 Total Protein 7.9 g/dL 6.4-8.3 Albumin 4.8 g/dL 3.8-5.5 Globulin 3.1 g/dL 2.0-4.8 A/G Ratio 1.5 CALC 0.6-2.3 Alk. Phosphatase 70 U/L 30-110 Alt (SGPT) 22 U/L 7-35 Ast (Sgot) 23 U/L 5-34 Total Bilirubin 0.2 mg/dL 0.2-1.3 Lipid Profile 11/21/2014 Cholesterol 263 mg/dL High 120-200 Triglycerides 108 mg/dL 30-200 HDL Cholesterol 83 mg/dL 30-85 LDL (Calculated) 158 CALC High 0-129 VLDL Cholesterol 22 mg/dL 0-50 HDL Risk Factor 3.2 CALC 0.0-4.4 Laboratory test finding 11/21/2014 Free T4 1.03 ng/dL 0.75-1.54 TSH 1.70 mIU/L 0.50-6.00 Vitamin D25 29 Low 30-100 CBC Electronic ([facility]) 11/21/2014 WBC 8.6 3.6-9.6 RBC 4.75 3.90-5.70 Hemoglobin (Fma/CMC/CTX) 14.4 g/dL 12.1 - 17.2 Hematocrit (Fma/CMC/CTX) 42.5 % 36.1 - 50.3 Platelets 368 10^3/ul 150-400 Lymph% 26.2 % 17.0-48.0 Mixed% 5.1 Neutrophils % 68.7 Mean Corpuscular Vol 90 82.2-97.4 Mean Corpuscular Hemoglobin 30.4 27.6-33.3 Mean Corpuscular Hemo Concen 33.9 32.0-36.0 RDW 14.3 High 11.6-13.7 Mean Platelet Volume 6.7 5.5-11.0 Ua - Micro (a) 08/20/2014 Appearance CLEAR Color YELLOW Glucose, Urine (Fma/CMC/CTX) NEG Bilirubin NEG Ketones 15MG/DL SP Grav 1.020 Blood NEG PH 6.0 Protein NEG Urobil 0.2 Nitrite NEG Leukocytes (Fma/CMC/[facility]) LARGE Hyaline - /Lpf Granular - /Lpf WBC (Fma,[facility]) 20-25 RBC 0-2 Mucus - /Lpf Epith MOD /Lpf Bacteria 1+ /Hpf Amorphous - /Lpf Crystals, Fluid (Fma/CMC/CTX) - Z#Comments - Laboratory test finding 05/07/2014 Troponin I 0.00 ng/mL <0.03 5 Comp Metabolic Panel 05/07/2014 Sodium 137 mmol/L 133-145 Potassium 3.9 mmol/L 3.7-5.6 Chloride 103 mmol/L 101-111 Co2 Carbon Dioxide 27 mmol/L 22-32 Anion Gap 7 mmol/L 2-11 Glucose 87 mg/dL 70-100 Blood Urea Nitrogen 14 mg/dL 6-24 Creatinine 0.61 mg/dL 0.51-0.95 BUN/Creatinine Ratio 23.0 High 8-20 Calcium 9.2 mg/dL 8.6-10.3 Total Protein 6.8 g/dL 6.4-8.9 Albumin 4.0 g/dL 3.2-5.2 Globulin 2.8 g/dL 2-4 Albumin/Globulin Ratio 1.4 1-3 Total Bilirubin 0.30 mg/dL 0.2-1.0 Alkaline Phosphatase 67 U/L 34-104 Alt 14 U/L 7-52 Ast 16 U/L 13-39 Egfr Non- 93.2 >60 Egfr 119.9 >60 6 Laboratory test finding 05/07/2014 Troponin I 0.01 ng/mL <0.03 7 CBC Auto Diff 05/07/2014 White Blood Count 6.8 10^3/uL 4.8-10.8 Red Blood Count 4.47 10^6/uL 4.0-5.4 Hemoglobin 13.6 g/dL 12.0-16.0 Hematocrit 40 % 35-47 Mean Corpuscular Volume 90 fL 80-97 Mean Corpuscular Hemoglobin 30 pg 27-31 Mean Corpuscular HGB Conc 34 g/dL 31-36 Red Cell Distribution Width 14 % 10.5-15 Platelet Count 303 10^3/uL 150-450 Mean Platelet Volume 8 um3 7.4-10.4 Abs Neutrophils 4.0 10^3/uL 1.5-7.7 Abs Lymphocytes 1.9 10^3/uL 1.0-4.8 Abs Monocytes 0.7 10^3/uL 0-0.8 Abs Eosinophils 0.2 10^3/uL 0-0.6 Abs Basophils 0.1 10^3/uL 0-0.2 Abs Nucleated RBC 0 10^3/uL Granulocyte % 58.5 % 38-83 Lymphocyte % 27.6 % 25-47 Monocyte % 10.5 % High 1-9 Eosinophil % 2.3 % 0-6 Basophil % 1.1 % 0-2 Nucleated Red Blood Cells % 0 Urinalysis Profile 05/07/2014 Urine Color Straw Urine Appearance Clear Urine Specific [place] 1.005 Low 1.010-1.030 Urine pH 8.0 5-9 Urine Urobilinogen Negative Negative Urine Ketones Negative Negative Urine Protein Negative Negative Urine Leukocytes Negative Negative Urine Blood Negative Negative Urine Nitrite Negative Negative Urine Bilirubin Negative Negative Urine Glucose Negative Negative Comprehensive Metabolic Prof 04/30/2014 Sodium 134 mEq/L 134-149 Potassium 4.4 mEq/L 3.6-5.5 Chloride 105 mEq/L 94-112 Carbon Dioxide 29 mEq/L 21-32 Glucose 93 mg/dL 70-105 BUN 28 mg/dL High 6-26 8 Creatinine 0.6 mg/dL 0.6-1.4 BUN/Creat Ratio 46.7 CALC High 8.0-36.0 Calcium 10.1 mg/dL 8.6-10.2 Total Protein 7.9 g/dL 6.3-8.1 Albumin 4.7 g/dL 3.8-5.5 Globulin 3.2 g/dL 2.0-4.8 A/G Ratio 1.5 CALC 0.6-2.3 Alk. Phosphatase 67 U/L 30-110 Alt (SGPT) 18 U/L 7-35 Ast (Sgot) 21 U/L 5-34 Total Bilirubin 0.4 mg/dL 0.2-1.3 CBC Electronic ([facility]) 04/30/2014 WBC 7.6 3.6-9.6 RBC 4.71 3.90-5.70 Hemoglobin (Fma/CMC/CTX) 14.5 g/dL 12.1 - 17.2 Hematocrit (a/CMC/CTX) 42.7 % 36.1 - 50.3 Platelets 308 10^3/ul 150-400 Lymph% 27.0 % 17.0-48.0 Mixed% 5.6 Neutrophils % 67.4 Mean Corpuscular Vol 91 82.2-97.4 Mean Corpuscular Hemoglobin 30.7 27.6-33.3 Mean Corpuscular Hemo Concen 33.9 32.0-36.0 RDW 13.5 11.6-13.7 Mean Platelet Volume 7.3 5.5-11.0 Laboratory test finding 04/30/2014 TSH 1.52 mIU/L 0.50-6.00 Free T4 1.05 ng/dL 0.75-1.54 Laboratory test finding 10/19/2013 Erythrocyte Sed Rate 19 mm/Hr 0-40 Comp Metabolic Panel 10/19/2013 Sodium 139 mmol/L 133-145 Potassium 3.9 mmol/L 3.7-5.6 Chloride 104 mmol/L 101-111 Co2 Carbon Dioxide 29 mmol/L 22-32 Anion Gap 6 mmol/L 2-11 Glucose 92 mg/dL 70-100 Blood Urea Nitrogen 16 mg/dL 6-24 Creatinine 0.52 mg/dL 0.51-0.95 BUN/Creatinine Ratio 30.8 High 8-20 Calcium 9.4 mg/dL 8.6-10.3 Total Protein 6.6 g/dL 6.4-8.9 Albumin 4.2 g/dL 3.2-5.2 Globulin 2.4 g/dL 2-4 Albumin/Globulin Ratio 1.8 1-3 Total Bilirubin 0.40 mg/dL 0.2-1.0 Alkaline Phosphatase 58 U/L 34-104 Alt 13 U/L 7-52 Ast 15 U/L 13-39 Egfr Non- 112.1 >60 Egfr 144.1 >60 9 Urinalysis 10/19/2013 Urine Color Yellow Urine Appearance Clear Urine Specific [place] 1.006 Low 1.010-1.030 Urine Esterase Negative Negative Urine Nitrate Negative Negative Urine Urobilinogen Negative E.U./dL Negative Urine Protein Negative mg/dL Negative Urine pH 7.5 5-9 Urine Blood Negative Negative Urine Ketones Negative mg/dL Negative Urine Bilirubin Negative Negative Urine Glucose Negative mg/dL Negative Inr/Protime 10/19/2013 Inr 0.97 0.85-1.06 CBC Auto Diff 10/19/2013 White Blood Count 8.0 10^3/uL 4.8-10.8 Red Blood Count 4.46 10^6/uL 4.0-5.4 Hemoglobin 13.1 g/dL 12.0-16.0 Hematocrit 40 % 35-47 Mean Corpuscular Volume 89 fL 80-97 Mean Corpuscular Hemoglobin 29 pg 27-31 Mean Corpuscular HGB Conc 33 g/dL 31-36 Red Cell Distribution Width 14 % 10.5-15 Platelet Count 318 10^3/uL 150-450 Mean Platelet Volume 9 um3 7.4-10.4 Abs Neutrophils 5.5 10^3/uL 1.5-7.7 Abs Lymphocytes 1.6 10^3/uL 1.0-4.8 Abs Monocytes 0.7 10^3/uL 0-0.8 Abs Eosinophils 0 10^3/uL 0-0.6 Abs Basophils 0.1 10^3/uL 0-0.2 Abs Nucleated RBC 0.01 10^3/uL Granulocyte % 69.3 % 38-83 Lymphocyte % 20.5 % Low 25-47 Monocyte % 8.8 % 1-9 Eosinophil % 0.6 % 0-6 Basophil % 0.8 % 0-2 Nucleated Red Blood Cells % 0.1 Ua - Micro ([facility]) 10/02/2013 Appearance clear Color yellow Glucose neg Bilirubin neg Ketones neg SP Grav 1.025 Blood trace-lysed PH 7.0 Protein neg Urobil 0.2 Nitrite neg Leukocytes (a/[facility]) small Hyaline - /Lpf Granular - /Lpf WBC ([facility]) 6-8 RBC 0-1 Mucus - /Lpf Epith occass /Lpf Bacteria trace /Hpf Amorphous - /Lpf Crystals, Fluid (a/CMC/CTX) - Z#Comments - CBC Electronic ([facility]) 10/02/2013 WBC 7.4 3.6-9.6 RBC 4.40 3.90-5.70 Hemoglobin (a/CMC/CTX) 13.2 g/dL 12.1 - 17.2 Hematocrit ([facility]/CMC/CTX) 39.1 % 36.1 - 50.3 Platelets 337 10^3/ul 150-400 Lymph% 25.5 % 17.0-48.0 Mixed% 6.6 Neutrophils % 67.9 Mean Corpuscular Vol 89 82.2-97.4 Mean Corpuscular Hemoglobin 30.0 27.6-33.3 Mean Corpuscular Hemo Concen 33.7 32.0-36.0 RDW 14.3 High 11.6-13.7 Mean Platelet Volume 7.1 6.5-11.0 Comprehensive Metabolic Prof 10/02/2013 Albumin 4.4 g/dL 3.8-5.5 Alk. Phos. 64 U/L 30-110 Alt (SGPT) 17 U/L 7-35 Ast (Sgot) 20 U/L 5-34 BUN 28 mg/dL High 6-26 Calcium 9.9 mg/dL 8.6-10.2 Chloride 98 mEq/L 94-112 Creatinine 0.6 mg/dL 0.6-1.4 Carbon Dioxide 26 mEq/L 21-32 Glucose 93 mg/dL 70-105 Sodium 140 mEq/L 134-149 Total Bilirubin 0.3 mg/dL 0.2-1.3 Total Protein 7.3 g/dL 6.3-8.1 Potassium 4.2 mEq/L 3.6-5.5 Globulin 2.9 g/dL 2.0-4.8 A/G Ratio 1.5 Calc 0.6-2.3 BUN/Creat Ratio 47.5 Calc High 8.0-36.0 Laboratory test finding 10/02/2013 Free T4 1.05 ng/dL 0.75-1.54 TSH 1.11 mIU/L 0.50-6.00 Vitamin D25 29.2 ng/mL Low 30.0-100.0 Lipid Profile 10/02/2013 Cholesterol 226 mg/dL High 120-200 HDL 71 mg/dL 30-85 Triglycerides 51 mg/dL 30-200 HDL Risk Factor 3.2 CALC 0.0-4.4 LDL (Calculated) 145 CALC High 0-129 VLDL (Calculated) 10 mg/dL 0-50 Ict Hemoccult (a) 07/27/2013 Ict Hemoccult (1) neg Ict Hemoccult-(2) neg Ict-Hemoccult (3) neg Laboratory test finding 06/28/2013 Tick Testing, B [place] Negative 10 Ict Hemoccult (a) 03/15/2013 Ict Hemoccult (1) neg Ict Hemoccult-(2) neg Ict-Hemoccult (3) neg Laboratory test finding 02/21/2013 Free T4 0.93 ng/dL 0.75-1.54 TSH 0.94 mIU/L 0.50-6.00 CBC Electronic ([facility]) 02/21/2013 WBC 5.1 3.6-9.6 RBC 4.62 3.90-5.70 Hemoglobin (Fma/CMC/CTX) 13.3 g/dL 12.1 - 17.2 Hematocrit (Fma/CMC/CTX) 41.0 % 36.1 - 50.3 Platelets 234 10^3/ul 150-400 Lymph% 24.1 20.5-51.1 Mixed% 5.9 Neutrophils % 70.0 Mean Corpuscular Vol 89 82.2-97.4 Mean Corpuscular Hemoglobin 28.9 27.6-33.3 Mean Corpuscular Hemo Concen 32.5 32.0-36.0 RDW 14.3 High 11.6-13.7 Mean Platelet Volume 6.7 6.5-11.0 Comprehensive Metabolic Prof 02/21/2013 Albumin 4.4 g/dL 3.8-5.5 Alk. Phos. 91 U/L 30-110 Alt (SGPT) 31 U/L 7-35 Ast (Sgot) 33 U/L 5-34 BUN 19 mg/dL 6-26 Calcium 8.6 mg/dL 8.6-10.2 Chloride 96 mEq/L 94-112 Creatinine 0.9 mg/dL 0.6-1.4 Carbon Dioxide 24 mEq/L 21-32 Glucose 103 mg/dL 70-105 Sodium 134 mEq/L 134-149 Total Bilirubin 0.3 mg/dL 0.2-1.3 Total Protein 6.4 g/dL 6.3-8.1 Potassium 4.0 mEq/L 3.6-5.5 Globulin 2.1 g/dL 2.0-4.8 A/G Ratio 2.1 Calc 0.6-2.3 BUN/Creat Ratio 21.8 Calc 8.0-36.0 Laboratory test finding 02/21/2013 Vitamin D, 25 Oh 21.8 ng/mL Low 30.0- 100.0 11 Laboratory test finding 09/19/2012 Throat - Beta Strep neg @ 48 hrs Fma Laboratory test finding 09/12/2012 Free T4 1.19 ng/dL 0.75-1.54 Troponin < 0.06 ng/ml Low 0.00-2.30 12 Comprehensive Metabolic Prof 09/12/2012 Albumin 5.0 g/dL 3.8-5.5 Alk. Phos. 79 U/L 30-110 Alt (SGPT) 17 U/L 7-35 Ast (Sgot) 23 U/L 5-34 BUN 22 mg/dL 6-26 Calcium 9.8 mg/dL 8.6-10.2 Chloride 103 mEq/L 94-112 Creatinine 0.7 mg/dL 0.6-1.4 Carbon Dioxide 26 mEq/L 21-32 Glucose 98 mg/dL 70-105 Sodium 139 mEq/L 134-149 Total Bilirubin 0.4 mg/dL 0.2-1.3 Total Protein 7.8 g/dL 6.3-8.1 Potassium 5.2 mEq/L 3.6-5.5 Globulin 2.9 g/dL 2.0-4.8 A/G Ratio 1.7 Calc 0.6-2.3 BUN/Creat Ratio 32.9 Calc 8.0-36.0 Laboratory test finding 06/24/2012 Tick Testing, B [place] Negative 13 Comprehensive Metabolic Prof 05/02/2012 Albumin 4.7 g/dL 3.8-5.5 Alk. Phos. 74 U/L 30-110 Alt (SGPT) 18 U/L 7-35 Ast (Sgot) 22 U/L 5-34 BUN 16 mg/dL 6-26 Calcium 9.6 mg/dL 8.6-10.2 Chloride 94 mEq/L 94-112 Creatinine 0.6 mg/dL 0.6-1.4 Carbon Dioxide 25 mEq/L 21-32 Glucose 89 mg/dL 70-105 Sodium 136 mEq/L 134-149 Total Bilirubin 0.3 mg/dL 0.2-1.3 Total Protein 6.9 g/dL 6.3-8.1 Potassium 4.3 mEq/L 3.6-5.5 Globulin 2.3 g/dL 2.0-4.8 A/G Ratio 2.0 Calc 0.6-2.2 BUN/Creat Ratio 24.7 Calc 8.0-36.0 Laboratory test finding 05/02/2012 Free T4 1.26 ng/dL 0.75-1.54 CBC Electronic (a) 05/02/2012 WBC 8.0 3.6-9.6 RBC 4.75 3.90-5.70 Hemoglobin (Fma/CMC/CTX) 14.0 g/dL 12.1 - 17.2 Hematocrit (Fma/CMC/CTX) 43.1 % 36.1 - 50.3 Platelets 364 10^3/ul 150-400 Lymph% 25.1 20.5-51.1 Mixed% 7.6 Neutrophils % 67.3 Mean Corpuscular Vol 91 82.2-97.4 Mean Corpuscular Hemoglobin 29.4 27.6-33.3 Mean Corpuscular Hemo Concen 32.3 32.0-36.0 RDW 13.8 High 11.6-13.7 Mean Platelet Volume 7.9 6.5-11.0 Lyme Igg/M W/RFX [place] 03/09/2012 Lyme IgG/IgM Ab 1.40 index High 0.00- 0.90 14 Lyme Ab Interp.,Eia Positive Lyme Disease Ab, Quant, IgM 2.26 index High 0.00-0.90 15 Lyme Ab IgM Interp., Eia Positive Lyme Western Blot Ser 03/09/2012 IgG P93 Ab. Absent IgG P66 Ab. Absent IgG P58 Ab. Absent IgG P45 Ab. Absent IgG P41 Ab. Present IgG P39 Ab. Absent IgG P30 Ab. Absent IgG P28 Ab. Absent IgG P23 Ab. Absent IgG P18 Ab. Absent Lyme IgG WB Interp. Negative 16 IgM P41 Ab. Present IgM P39 Ab. Absent IgM P23 Ab. Absent Lyme IgM WB Interp. Negative 17 CBC Electronic ([facility]ma) 03/09/2012 WBC 6.4 3.6-9.6 RBC 4.66 3.90-5.70 Hemoglobin (Fma/CMC/CTX) 13.7 g/dL 12.1 - 17.2 Hematocrit (Fma/CMC/CTX) 41.9 % 36.1 - 50.3 Platelets 334 10^3/ul 150-400 Lymph% 31.9 20.5-51.1 Mixed% 7.5 Neutrophils % 60.6 Mean Corpuscular Vol 90 82.2-97.4 Mean Corpuscular Hemoglobin 29.5 27.6-33.3 Mean Corpuscular Hemo Concen 32.8 32.0-36.0 RDW 12.3 11.6-13.7 Mean Platelet Volume 7.9 6.5-11.0 Babesia Microti AB PNL 03/09/2012 Babesia microti IgM <1:10 Neg:<1:10 Babesia microti IgG <1:10 Neg:<1:10 18 Comprehensive Metabolic Prof 11/09/2011 Albumin 4.6 g/dL 3.8-5.5 Alk. Phos. 70 U/L 30-110 Alt (SGPT) 13 U/L 7-35 Ast (Sgot) 18 U/L 5-34 BUN 17 mg/dL 6-26 Calcium 9.8 mg/dL 8.6-10.2 Chloride 99 mEq/L 94-112 Creatinine 0.7 mg/dL 0.6-1.4 Carbon Dioxide 31 mEq/L 21-32 Glucose 90 mg/dL 70-105 Sodium 137 mEq/L 134-149 Total Bilirubin 0.5 mg/dL 0.2-1.3 Total Protein 7.2 g/dL 6.3-8.1 Potassium 4.0 mEq/L 3.6-5.5 Globulin 2.6 g/dL 2.0-4.8 A/G Ratio 1.8 Calc 0.6-2.2 BUN/Creat Ratio 25.6 Calc 8.0-36.0 Lipid Profile 11/09/2011 Cholesterol 226 mg/dL High 120-200 HDL 69 mg/dL 30-85 Triglycerides 82 mg/dL 30-200 HDL Risk Factor 3.3 CALC 0.0-4.0 LDL (Calculated) 141 CALC High 0-129 VLDL (Calculated) 16 mg/dL 0-50 Laboratory test finding 11/09/2011 Free T4 1.13 ng/dL 0.75-1.54 TSH 2.03 mIU/L 0.50-6.00 Ua - Non Micro (a) 11/09/2011 Appearance clear Color yellow Glucose, Urine ([facility]ma/CMC/CTX) neg Bilirubin neg Ketones neg SP Grav 1.010 Blood neg PH 6.5 Protein neg Urobil 0.2 Nitrite neg Leukocytes ([facility]ma/CMC/[facility]) neg CBC Electronic (a) 11/09/2011 WBC 6.0 3.6-9.6 RBC 4.72 3.90-5.70 Hemoglobin (Fma/CMC/CTX) 13.9 g/dL 12.1 - 17.2 Hematocrit (Fma/CMC/CTX) 42.5 % 36.1 - 50.3 Platelets 363 10^3/ul 150-400 Lymph% 38.4 20.5-51.1 Mixed% 8.5 Neutrophils % 53.1 Mean Corpuscular Vol 90 82.2-97.4 Mean Corpuscular Hemoglobin 29.5 27.6-33.3 Mean Corpuscular Hemo Concen 32.8 32.0-36.0 RDW 11.6 11.6-13.7 Mean Platelet Volume 8.0 6.5-11.0 Laboratory test finding 07/06/2011 Sed Rate (a/CMC/[facility]) 17 mm CBC Electronic ([facility]) 07/06/2011 WBC 6.4 3.6-9.6 RBC 4.46 3.90-5.70 Hemoglobin (Fma/CMC/CTX) 13.5 g/dL 12.1 - 17.2 Hematocrit (a/CMC/CTX) 40.8 % 36.1 - 50.3 Platelets 297 10^3/ul 150-400 Lymph% 35.3 20.5-51.1 Mixed% 10.0 Neutrophils % 54.7 Mean Corpuscular Vol 91.5 82.2-97.4 Mean Corpuscular Hemoglobin 30.3 27.6-33.3 Mean Corpuscular Hemo Concen 33.1 32.0-36.0 RDW 13.8 High 11.6-13.7 Mean Platelet Volume 10.2 6.5-11.0 Comprehensive Metabolic Prof 07/06/2011 Albumin 4.6 g/dL 3.8-5.5 Alk. Phos. 57 U/L 30-110 Alt (SGPT) 22 U/L 7-35 Ast (Sgot) 20 U/L 5-34 BUN 32 mg/dL High 6-26 19 Calcium 9.4 mg/dL 8.6-10.2 Chloride 101 mEq/L 94-112 Creatinine 0.6 mg/dL 0.6-1.4 Carbon Dioxide 28 mEq/L 21-32 Glucose 100 mg/dL 70-105 Sodium 135 mEq/L 134-149 Total Bilirubin 0.3 mg/dL 0.2-1.3 Total Protein 6.8 g/dL 6.3-8.1 Potassium 3.8 mEq/L 3.6-5.5 Globulin 2.2 g/dL 2.0-4.8 A/G Ratio 2.1 Calc 0.6-2.2 BUN/Creat Ratio 53.2 Calc High 8.0-36.0 Laboratory test finding 07/06/2011 TSH 1.15 mIU/L 0.50-6.00 Laboratory test finding 03/04/2011 Tick Identification see scanned Ict Hemoccult (a) 11/29/2010 Ict Hemoccult (1) 12/01/10 NEG Ict Hemoccult-(2) 12/02/10 NEG Ict-Hemoccult (3) 12/03/10 NEG CBC Electronic (a) 11/26/2010 WBC 6.4 3.6-9.6 RBC 4.90 3.90-5.70 Hemoglobin (Fma/CMC/CTX) 15.0 g/dL 12.1 - 17.2 Hematocrit (Fma/CMC/CTX) 44.9 % 36.1 - 50.3 Platelets 330 10^3/ul 150-400 Lymph% 36.1 20.5-51.1 Mixed% 3.5 Neutrophils % 60.4 Mean Corpuscular Vol 91.6 82.2-97.4 Mean Corpuscular Hemoglobin 30.6 27.6-33.3 Mean Corpuscular Hemo Concen 33.4 32.0-36.0 RDW 13.7 11.6-13.7 Mean Platelet Volume 10.8 6.5-11.0 Laboratory test finding 11/26/2010 Iron 117 g/dL 60-150 Basic Metabolic Profile 11/26/2010 BUN 14 mg/dL 6-26 Calcium 9.8 mg/dL 8.6-10.2 Chloride 99 mEq/L 94-112 Creatinine 0.6 mg/dL 0.6-1.4 Carbon Dioxide 24 mEq/L 21-32 Glucose 87 mg/dL 70-105 Sodium 138 mEq/L 134-149 Potassium 4.5 mEq/L 3.6-5.5 BUN/Creat Ratio 24.6 Calc 8.0-36.0 Surgical Pathology 10/30/2010 Surgical <SEE 20 Pathology NOTE> Comprehensive 09/22/2010 Albumin 4.4 g/dL 3.8-5.5 Metabolic Prof Alk. Phos. 69 U/L 30-110 Alt (SGPT) 14 U/L 7-35 Ast (Sgot) 16 U/L 5-34 BUN 20 mg/dL 6-26 Calcium 9.3 mg/dL 8.6-10.2 Chloride 104 mEq/L 94-112 Creatinine 0.6 mg/dL 0.6-1.4 Carbon Dioxide 28 mEq/L 21-32 Glucose 89 mg/dL 70-105 Sodium 138 mEq/L 134-149 Total Bilirubin 0.2 mg/dL 0.2-1.3 Total Protein 6.9 g/dL 6.3-8.1 Potassium 4.2 mEq/L 3.6-5.5 Globulin 2.5 g/dL 2.0-4.8 A/G Ratio 1.8 Calc 0.6-2.2 BUN/Creat Ratio 35.0 Calc 8.0-36.0 Laboratory test finding 09/22/2010 Free T4 1.00 ng/dL 0.75-1.54 CBC (a) 09/22/2010 WBC 6.0 3.6-9.6 RBC 4.40 3.90-5.70 Hemoglobin (Fma/CMC/CTX) 13.7 g/dL 12.1 - 17.2 Hematocrit (a/CMC/CTX) 40.6 % 36.1 - 50.3 Platelets 333 10^3/ul 150-400 Lymph% 35.7 20.5-51.1 Mixed% 7.0 Neutrophils % 57.3 Mean Corpuscular Vol 92.3 82.2-97.4 Mean Corpuscular Hemoglobin 31.1 27.6-33.3 Mean Corpuscular Hemo Concen 33.7 32.0-36.0 RDW 13.7 11.6-13.7 Mean Platelet Volume 10.8 6.5-11.0 Laboratory test finding 09/22/2010 Iron 57 g/dL Low 60-150 21 Ict Hemoccult (a) 08/25/2010 Ict Hemoccult (1) POSITIVE Ict Hemoccult-(2) POSITIVE Ict-Hemoccult (3) POSITIVE Ict Hemoccult (Fma) 07/14/2010 Ict Hemoccult (1) POSITIVE Ict Hemoccult-(2) POSITIVE Ict-Hemoccult (3) NEG Comprehensive Metabolic Prof 06/04/2010 Albumin 4.5 g/dL 3.8-5.5 Alk. Phos. 67 U/L 30-110 Alt (SGPT) 17 U/L 7-35 Ast (Sgot) 20 U/L 5-34 BUN 24 mg/dL 6-26 Calcium 9.6 mg/dL 8.6-10.2 Chloride 99 mEq/L 94-112 Creatinine 0.6 mg/dL 0.6-1.4 Carbon Dioxide 29 mEq/L 21-32 Glucose 92 mg/dL 70-105 Sodium 137 mEq/L 134-149 Total Bilirubin 0.4 mg/dL 0.2-1.3 Total Protein 6.9 g/dL 6.3-8.1 Potassium 4.1 mEq/L 3.6-5.5 Globulin 2.4 g/dL 2.0-4.8 A/G Ratio 1.9 Calc 0.6-2.2 BUN/Creat Ratio 40.2 Calc High 8.0-36.0 CBC ([facility]) 06/04/2010 WBC 6.8 3.6-9.6 RBC 4.56 3.90-5.70 Hemoglobin (Fma/CMC/CTX) 13.9 g/dL 12.1 - 17.2 Hematocrit (a/CMC/CTX) 40.5 % 36.1 - 50.3 Mean Corpuscular Vol 89 82.2-97.4 Mean Corpuscular Hemaglobin 30.5 27.6-33.3 Mean Corpuscular Hemo Concen 34.3 33.0-36.0 Platelets 311 10^3/ul 150-400 Lymph% 24.6 20.5-51.1 Mixed% 6.1 Neutrophils % 63.3 RDW 12.5 11.6-13.7 Mean Platelet Volume 7.6 7.4-10.4 Ict Hemoccult ([facility]) 01/14/2010 Ict Hemoccult (1) neg Ict Hemoccult-(2) neg Ict-Hemoccult (3) neg Comprehensive Metabolic Prof 12/25/2009 Albumin 4.8 g/dL 3.8-5.5 Alk. Phos. 72 U/L 30-110 Alt (SGPT) 17 U/L 7-35 Ast (Sgot) 22 U/L 5-34 BUN 14 mg/dL 6-26 Calcium 9.9 mg/dL 8.6-10.2 Chloride 98 mEq/L 94-112 Creatinine 0.6 mg/dL 0.6-1.4 Carbon Dioxide 22 mEq/L 21-32 Glucose 86 mg/dL 70-105 Sodium 140 mEq/L 134-149 Total Bilirubin 0.4 mg/dL 0.2-1.3 Total Protein 7.2 g/dL 6.3-8.1 Potassium 4.4 mEq/L 3.6-5.5 Globulin 2.3 g/dL 2.0-4.8 A/G Ratio 2.1 Calc 0.6-2.2 BUN/Creat Ratio 24.2 Calc 8.0-36.0 Lipid Profile 12/25/2009 Cholesterol 249 mg/dL High 120-200 HDL 53 mg/dL 30-85 Triglycerides 104 mg/dL 30-200 HDL Risk Factor 4.7 CALC 4.2-7.0 LDL (Calculated) 176 CALC High 0-129 VLDL (Calculated) 21 mg/dL 0-50 Laboratory test finding 12/25/2009 Free T4 1.38 ng/dL 0.75-1.54 Ua - Non Micro ([facility]) 12/25/2009 Appearance CLEAR Color YELLOW Glucose, Urine (a/CMC/CTX) NEG Bilirubin NEG Ketones NEG SP Grav 1.020 Blood NEG PH 6.0 Protein NEG Urobil 0.2 E.U./dL Nitrite NEG Leukocytes (a/[facility]) NEG Laboratory test finding 12/25/2009 Sed Rate (a/CMC/[facility]) 14 mm CBC ([facility]) 12/25/2009 WBC 7.1 3.6-9.6 RBC 5.20 3.90-5.70 Hemoglobin (Fma/CMC/CTX) 15.5 g/dL 12.1 - 17.2 Hematocrit (a/CMC/CTX) 48.3 % 36.1 - 50.3 Mean Corpuscular Vol 92.9 82.2-97.4 Mean Corpuscular Hemaglobin 29.8 27.6-33.3 Mean Corpuscular Hemo Concen 32.1 Low 33.0-36.0 Platelets 355 10^3/ul 150-400 Lymph% 32.8 20.5-51.1 Mixed% 8.1 Neutrophils % 59.1 RDW 14.0 High 11.6-13.7 Mean Platelet Volume 9.7 7.4-10.4 Influenza A&B 03/29/2009 Influenza A neg Influenza B neg Laboratory test finding 03/29/2009 Lyme Disease,Igg/Igm 0.30 INDEX Negative 22, 23 Lyme Western Blot Serum 12/24/2008 IgG P93 Ab. Absent IgG P66 Ab. Absent IgG P58 Ab. Absent IgG P45 Ab. Absent IgG P41 Ab. Absent IgG P39 Ab. Absent IgG P30 Ab. Absent IgG P28 Ab. Absent IgG P23 Ab. Absent IgG P18 Ab. Absent Lyme IgG WB Interp. Negative 24 IgM P41 Ab. Absent IgM P39 Ab. Absent IgM P23 Ab. Absent Lyme IgM WB Interp. Negative 25 Laboratory test 11/20/2008 Tick Identification see scan docum finding Lipid Profile 11/20/2008 Cholesterol 236 mg/dL High 120-200 26 HDL 59 mg/dL 30-85 26 Triglycerides 80 mg/dL 30-200 26 HDL Risk Factor 4.0 CALC Low 4.2-7.0 26 LDL (Calculated) 160 CALC High 0-129 26 VLDL (Calculated) 16 mg/dL 0-50 26 Comprehensive Metabolic Prof 11/06/2008 Albumin 4.3 g/dL 3.8-5.5 Alk. Phos. 73 U/L 30-110 Alt (SGPT) 19 U/L 7-35 Ast (Sgot) 23 U/L 5-34 BUN 20 mg/dL 6-26 Calcium 9.9 mg/dL 8.6-10.2 Chloride 102 mEq/L 94-112 Creatinine 0.6 mg/dL 0.6-1.4 Carbon Dioxide 28 mEq/L 21-32 Glucose 92 mg/dL 70-105 Sodium 141 mEq/L 134-149 Total Bilirubin 0.2 mg/dL 0.2-1.3 Total Protein 7.2 g/dL 6.3-8.1 Potassium 4.3 mEq/L 3.6-5.5 Globulin 2.9 g/dL 2.0-4.8 A/G Ratio 1.5 Calc 0.6-2.2 BUN/Creat Ratio 34.0 Calc 8.0-36.0 CBC (a) 11/06/2008 WBC 7.1 3.6-9.6 RBC 4.67 3.90-5.70 Hemoglobin (Fma/CMC/CTX) 13.6 g/dL 12.1 - 17.2 Hematocrit (Fma/CMC/CTX) 41.8 % 36.1 - 50.3 Mean Corpuscular Vol 89.5 82.2-97.4 Mean Corpuscular Hemaglobin 29.1 27.6-33.3 Mean Corpuscular Hemo Concen 32.5 Low 33.0-36.0 Platelets 324 10^3/ul 150-400 Lymph% 28.6 20.5-51.1 Mixed% 10.4 Neutrophils % 61.0 RDW 14.1 High 11.6-13.7 Mean Platelet Volume 10.3 7.4-10.4 Ict Hemoccult (a) 03/29/2007 Ict Hemoccult (1) NEG Ict Hemoccult-(2) NEG Ict-Hemoccult (3) NEG Complete Blood Count 03/23/2007 WBC 5.8 x10\\S\\3/uL 3.6-9.6 Gran# 3.4 x10\\S\\3/uL 1.5-7.2 Gran% 58.0 % 42.2-75.2 HCT 43 % 36-50 HGB 14.3 g/dL 12.1-17.2 Lymph# 1.9 x10\\S\\3/uL 0.7-4.9 Lymph% 33.3 % 20.5-51.1 MCH 30.5 pg 27.6-33.3 MCV 90.4 fL 82.2-97.4 MCHC 33.8 g/dL 33.0-35.5 Mo# 0.5 x10\\S\\3/uL 0.1-0.9 Mo% 8.7 % 1.7-9.3 MPV 8.5 fL 7.4-10.4 PLT 353 x10\\S\\3/uL 150-400 RBC 4.70 x10\\S\\6/uL 3.90-5.70 RDW 13.5 % 11.6-13.7 Laboratory test finding 01/02/2005 Comments SEE IMAGE Lyme Profile (Igm,Igg) [facility] 05/18/2001 Lyme Igm Abs NEGATIVE 27 Lyme Igg Abs NEGATIVE 28 CBC With Diff (Fma) 05/17/2001 WBC 7.9 3.6-9.6 Lymphocytes 27.2 % 20.5 - 51.1 Monocytes 4.4 % 1.7 - 9.3 Granulocytes 68.4 % 42.2 - 75.2 Lymphocytes 2.1 10^3/uL 0.7 - 4.9 Monocytes 0.3 10^3/uL 0.1 - 0.9 Granulocytes 5.4 10^3/uL 1.5 - 7.2 RBC 4.78 3.90-5.70 Hemoglobin 13.9 g/dL 12.1 - 17.2 Hematocrit 42.8 % 36.1 - 50.3 Mean Corpuscular Vol 89.6 82.2-97.4 Mean Corpuscular Hemaglobin 29.2 27.6-33.3 Mean Corpuscular Hemo Concen 32.6 Low 31-36 RDW 13.9 High 11.6-13.7 Platelets 372 10^3/ul 150-400 Mean Platelet Volume 8.8 7.4-10.4 Laboratory test 02/20/2001 Tick Identification SEE IMAGE REPORT finding Laboratory test 12/09/1999 TSH 1.63 uIU/ML 0.3-4.5 finding Comp Metabolic (Fma) 12/09/1999 Albumin 4.1 GM/DL 3.80 - 5.50 Alkaline Phosphatase 43 U/L 39-130 Bilirubin, Total 0.4 mg/dL 0.2-1.3 BUN 20 mg/dL 10-26 Calcium 8.4 mg/dL 7.4-9.2 Creatinine 0.6 mg/dL 0.6-1.4 Glucose 79 mg/dL 70 - 118 Ast Sgot 11 U/L 9-44 Alt (SGPT) 15 U/L 0-28 Total Protein 6.6 g/dL 6.3-8.1 Sodium 146 mEq/L 134-149 Potassium 5.0 mEq/L 3.6-5.5 Chloride 108 mEq/L 94-112 Co2 32 21-32 Globulin 2.5 2.0-4.8 Albumin / Globulin Ratio 1.6 0.6-2.2 BUN/Creatinin Ratio 33.3 8.0-36 CBC With Diff (Fma) 12/09/1999 WBC 6.7 /Hpf 3.6 - 9.6 Lymphocytes 33.0 % 20.5 - 51.1 Monocytes 4.9 % 1.7 - 9.3 Granulocytes 62.1 % 42.2 - 75.2 Lymphocytes 2.2 10^3/uL 0.7 - 4.9 Monocytes 0.3 10^3/uL 0.1 - 0.9 Granulocytes 4.2 10^3/uL 1.5 - 7.2 RBC 4.57 /Hpf 3.90 - 5.70 Hemoglobin 13.9 g/dL 12.1 - 17.2 Hematocrit 41.0 % 36.1 - 50.3 Mean Corpuscular Vol 89.6 fl 82.2 - 97.4 Mean Corpuscular Hemaglobin 30.3 pg 27.6 - 33.3 Mean Corpuscular Hemo Concen 33.8 g/dL 33.0 - 34.8 RDW 13.7 % 11.6 - 13.7 Platelets 361 10^3/ul 150-400 Mean Platelet Volume 8.3 fl 7.4 - 10.4 1 Because ethnic data is not always readily available, this report includes an eGFR for both -Americans and non- Americans. The National Kidney Disease Education Program (NKDEP) does not endorse the use of the MDRD equation for patients that are not between the ages of 18 and 70, are , have extremes of body size, muscle mass, or nutritional status, or are non- or non-. According to the National Kidney Foundation, irrespective of diagnosis, the stage of the disease is based on the level of kidney function: Stage Description GFR(mL/min/1.73 m(2)) 1 Kidney damage with normal or decreased GFR 90 2 Kidney damage with mild decrease in GFR 60-89 3 Moderate decrease in GFR 30-59 4 Severe decrease in GFR 15-29 5 Kidney failure <15 (or dialysis) 2 RESULTS VERIFIED BY REPEAT ANALYSIS 3 Negative <0.91 Equivocal 0.91 - 1.09 Positive >1.09 4 Negative <0.80 Equivocal 0.80 - 1.19 Positive >1.19 IgM levels may peak at 3-6 weeks post infection, then gradually decline. 5 Reference Range and Interpretation: TnI (ng/mL) Interpretation Less Than 0.03 ng/mL Not supportive of diagnosis of [place] 0.03 - 0.50 ng/mL Indeterminate: suggest serial studies if clinically indicated. Greater than 0.5 ng/mL Consistent with diagnosis of [place] 6 Because ethnic data is not always readily available, this report includes an eGFR for both -Americans and non- Americans. The National Kidney Disease Education Program (NKDEP) does not endorse the use of the MDRD equation for patients that are not between the ages of 18 and 70, are , have extremes of body size, muscle mass, or nutritional status, or are non- or non-. According to the National Kidney Foundation, irrespective of diagnosis, the stage of the disease is based on the level of kidney function: Stage Description GFR(mL/min/1.73 m(2)) 1 Kidney damage with normal or decreased GFR 90 2 Kidney damage with mild decrease in GFR 60-89 3 Moderate decrease in GFR 30-59 4 Severe decrease in GFR 15-29 5 Kidney failure <15 (or dialysis) 7 Reference Range and Interpretation: TnI (ng/mL) Interpretation Less Than 0.03 ng/mL Not supportive of diagnosis of [place] 0.03 - 0.50 ng/mL Indeterminate: suggest serial studies if clinically indicated. Greater than 0.5 ng/mL Consistent with diagnosis of [place] 8 RESULTS VERIFIED BY REPEAT ANALYSIS 9 Because ethnic data is not always readily available, this report includes an eGFR for both -Americans and non- Americans. The National Kidney Disease Education Program (NKDEP) does not endorse the use of the MDRD equation for patients that are not between the ages of 18 and 70, are , have extremes of body size, muscle mass, or nutritional status, or are non- or non-. According to the National Kidney Foundation, irrespective of diagnosis, the stage of the disease is based on the level of kidney function: Stage Description GFR(mL/min/1.73 m(2)) 1 Kidney damage with normal or decreased GFR 90 2 Kidney damage with mild decrease in GFR 60-89 3 Moderate decrease in GFR 30-59 4 Severe decrease in GFR 15-29 5 Kidney failure <15 (or dialysis) 10 Tick testing does not diagnose Lyme disease in humans. Results indicate only whether or not B. burgdorferi was detected in the tick. If you believe you have any symptoms of Lyme disease consult your physician immediately. 11 Vitamin D deficiency has been defined by the [place] [employer] and an Endocrine Society practice guideline as a level of serum 25-OH vitamin D less than 20 ng/mL (1,2). The Endocrine Society went on to further define vitamin D insufficiency as a level between 21 and 29 ng/mL (2). 1. IOM ([place] of [employer]). 2010. Dietary reference intakes for calcium and D. [place]: The National Academies Press. 2. Daisha HENRIQUEZ, Shelbi PARKER, Ava GUTIERREZ, et al. Evaluation, treatment, and prevention of vitamin D deficiency: an Endocrine Society clinical practice guideline. JCEM. 2010; 96(7):1911-30. 12 RESULT SHERRILL'D 13 Tick testing does not diagnose Lyme disease in humans. Results indicate only whether or not B. burgdorferi was detected in the tick. If you believe you have any symptoms of Lyme disease consult your physician immediately. 14 Negative <0.91 Equivocal 0.91 - 1.09 Positive >1.09 Note: The CDC currently advises that Western blot testing be performed following all equivocal or positive EIA results. Final diagnosis should include appropriate clinical findings and a positive EIA which is also positive by Western blot. 15 Negative <0.91 Equivocal 0.91 - 1.09 Positive >1.09 . Note: IgM levels may peak at 3-6 weeks post infection, then gradually decline. FDA currently advises that Western Blot testing be performed following all equivocal or positive EIA results. Final diagnosis should include appropriate clinical findings and a positive EIA which is also positive by Western Blot. 16 Positive: 5 of the following Borrelia-specific bands: 18,23,28,30,39,41,45,58, 66, and 93. Negative: No bands or banding patterns which do not meet positive criteria. 17 Note: An equivocal or positive EIA result followed by a negative Western Blot result is considered NEGATIVE. An equivocal or positive EIA result followed by a positive Western Blot is considered POSITIVE by the CDC. . Positive: 2 of the following bands: 23,39 or 41 Negative: No bands or banding patterns which do not meet positive criteria. Criteria for positivity are those recommended by CDC/ASTPHLD. p23=Osp C, x38=[id number] . Note: Sera from individuals with the following may cross react in the Lyme Western Blot assays: other spirochetal diseases (periodontal disease, leptospirosis, relapsing fever, yaws, and pinta); connective autoimmune (Rheumatoid Arthritis and Systemic Lupus Erythematosus and also individuals with Antinuclear Antibody); other infections ([place] Spotted Fever; Edith-Blackman Virus, and Cytomegalovirus). . 18 . This test was developed and its performance characteristics determined by [employer]. It has not been cleared or approved by the U.S. Food and Drug Administration. The FDA has determined that such clearance or approval is not necessary. This test is used for clinical purposes. It should not be regarded as investigational or research. 19 RESULT SHERRILL'D 20 ---- RUN DATE: 11/03/10 [facility] NMI LIVE PAGE 1 RUN TIME: 1257 Specimen Inquiry RUN USER: INTERFACE -- Name: SKYLER ALEXANDER Status: REG REF Re10/30/10 Age/Sex: 80/F Unit#: [id number] Location: [facility] : [birth year] -- Specimen: [id number] SOUT Spec Date: 10/30/[address]: Ivan abdul MD Spec Type: SURGICAL P Received: 11/02/1095 Copies to: Mynor Fam MD SPECIMEN 1) BIOPSY CECAL NODULE 2) BIOPSY THICKENED FOLD AT 30 CM. - DESCENDING SIGMOID JUNCTION HISTORY POST-OP DIAGNOSIS: Normal EGD; dysphagia; diverticulosis left side; 2 raisa yps; heme positive follow-up CLINICAL INFORMATION: Dysphagia, appetite okay; blood in stools; history of polyps GROSS DESCRIPTION 1) The specimen is received in formalin labelled Skyler Randy, Cecal Nodule, and consists of multiple ramsey, soft tissue fragments measuring 0.8 x 0.5 x 0.3 cm. Submitted entirely, one cassette. 2) The specimen is received in formalin labelled Nardin Randy, Biopsy Thickened Fold at 30 cm. Descending Sigmoid Junction, and consists of multiple ramsey, soft tissue fragments measuring 0.5 x 0.3 x 0.3 cm. DIAGNOSIS 1) Colon, cecal nodule, biopsy: A. Tubular adenoma. B. No high grade dysplasia or malignancy. 2) Colon, thickened fold at 30 cm., biopsy: A. Tubular adenoma. B. No high grade dysplasia or malignancy. Signed Electronically by: JOS RIOS MD 11/03/10 1257 -- -- DEPARTMENT OF PATHOLOGY, [address] [place] [address] [facility] Permit #[id number] Jos Rios M.D. Director Elda Delacruz M.D. Trim Setter Dir jacobo -- 21 RESULTS SHERRILL'D 22 1sst 23 < or=0.80 Negative 0.81 - 1.20 Equivocal >1.20 Positive 24 Positive: 5 of the following Borrelia-specific bands: 18,23,28,30,39,41,45,58, 66, and 93. Negative: No bands or banding patterns which do not meet positive criteria. 25 Note: An equivocal or positive EIA result followed by a negative Western Blot result is considered NEGATIVE. An equivocal or positive EIA result followed by a positive Western Blot is considered POSITIVE by the CDC. . Positive: 2 of the following bands: 23,39 or 41 Negative: No bands or banding patterns which do not meet positive criteria. Criteria for positivity are those recommended by CDC/ASTPHLD. p23=Osp C, g37=[id number] 26 FASTING 27 REFERENCE RANGE 0.00-0.90 NEGATIVE 0.91-1.09 EQUIVOCAL GREATER THAN 1.10 POSITIVE LYME DISEASE AB, QUANT, IGM: IGM LEVELS MAY PEAK AT 3-6 WEEKS POST INFECTION THAN GRADUALLY DECLINE. FDA CURRENTLY ADVISES THAT WESTERN BLOT TESTING BE PERFORMED FOLLOWING ALL EQUIVOCAL OR POSITIVE EIA RESULTS. FINAL DIAGNOSIS SHOULD INCLUDE APPROPRIATE CLINICAL FINDINGS AND A POSITIVE EIA WHICH IS ALSO POSITIVE BY WESTERN BLOT. 28 REFERENCE RANGE 0.00-0.79 NEGATIVE 0.80-1.19 EQUIVOCAL GREATER THAN 1.20 POSITIVE LYME DISEASE AB, QUANT, IGM: IGM LEVELS MAY PEAK AT 3-6 WEEKS POST INFECTION THAN GRADUALLY DECLINE. FDA CURRENTLY ADVISES THAT WESTERN BLOT TESTING BE PERFORMED FOLLOWING ALL EQUIVOCAL OR POSITIVE EIA RESULTS. FINAL DIAGNOSIS SHOULD INCLUDE APPROPRIATE CLINICAL FINDINGS AND A POSITIVE EIA WHICH IS ALSO POSITIVE BY WESTERN BLOT. Procedures Date CPT Code Description Status Comment 11/22/2014 84521 Event Monitoring Cardiac,interpretation Completed 11/22/2014 14800 Event Monitoring, Cardiac Completed 11/21/2014 02749 Electrocardiogram Complete Completed 08/20/2014 03474 Electrocardiogram Complete Completed 01/12/2013 50643 Dxa Bone Density Vertebarl FX Assessment Completed 01/12/2013 33906 Dxa Bone Density Study One Or More Sites Completed Axial Skeleton 01/03/2013 Bone Mineral Density Test Completed osteoporosis 09/12/2012 77731 Electrocardiogram Complete Completed 05/19/2012 Mammogram Completed 10/06/2010 Colonoscopy Completed Cecal polyp 05/19/2010 Mammogram Completed 05/01/2010 Mammogram Completed 12/25/2009 24594 Electrocardiogram Complete Completed 11/06/2008 19879 Electrocardiogram Complete Completed 06/16/2007 50615 Electrocardiogram Complete Completed 04/21/2007 Colonoscopy Completed 02/17/2001 08970 Remove Foreign Body Subcutaneous Simple Completed 07/25/1997 70634 Electrocardiogram Complete Completed Encounters Type Date Location Provider CPT E/M Dx Office Visit 08/25/2017 8:20a Main Office Mynor Fam M.D. 71893 I10 R41.81 Z23 Office Visit 03/10/2017 8:00a Main Office Mynor Fam M.D. 99209 I10 R41.81 M20.42 R51 Office Visit 09/02/2016 11:00a Main Office Mynor Fam M.D. 09829 I10 M81.0 Office Visit 04/27/2016 3:40p Main Office Mynor Fam M.D. 77685 I10 Office Visit 01/01/2016 8:20a Main Office Mynor Fam M.D. 47469 I10 M81.0 R82.99 Office Visit 06/26/2015 10:20a Main Office Mynor Fam M.D. 33308 I10 Z23 M25.552 Office Visit 03/25/2015 2:40p Main Office Mynor Fam M.D. 46848 401.1 780.93 E906.4 919.4 Office Visit 03/12/2015 9:45a Main Office Nati WhiteTARI 90548 E906.4 682.6 Office Visit 01/21/2015 1:40p Main Office Mynor Fam M.D. 75705 401.1 733.09 780.93 782.9 Office Visit 12/05/2014 2:20p Main Office Mynor Fam M.D. 54509 401.1 733.09 780.93 Office Visit 11/21/2014 3:40p Main Office Mynor Fam M.D. 38585 780.2 401.1 733.09 Office Visit 08/20/2014 5:00p Main Office Mynor Fam M.D. 34190 401.1 733.09 782.9 365.9 V70.0 V04.81 791.7 Office Visit 05/24/2014 4:20p [facility] Office Mynor Fam M.D. 28074 053.29 Office Visit 05/08/2014 10:50a Main Office Mynor Fam M.D. 53267 053.29 Office Visit 04/30/2014 2:00p Main Office Mynor Fam M.D. 08754 733.09 401.1 Office Visit 01/25/2014 2:15p Main Office MIGDALIA ScottP 31449 782.9 Office Visit 12/28/2013 11:30a Main Office MIGDALIA ScottP 91807 911.4 E906.4 Office Visit 10/02/2013 1:20p Main Office Mynor Fam M.D. 43595 401.1 733.09 791.7 Office Visit 06/30/2013 12:30p Main Office Mynor Fam M.D. 39842 564.00 733.09 401.1 v04.81 Office Visit 06/28/2013 9:45a Main Office Manuela Reyes Afnp-C 68295 E906.4 912.4 Office Visit 03/13/2013 7:50p Main Office Mynor Fam M.D. 85679 564.00 733.09 401.1 Office Visit 02/20/2013 3:00p Main Office Mynor Fam M.D. 17542 564.00 805.4 733.09 Office Visit 01/30/2013 3:20p Main Office Mynor Fam M.D. 91218 564.00 805.4 733.09 Office Visit 01/10/2013 10:15a Main Office TARI Parada 80976 780.4 719.46 Office Visit 12/19/2012 1:40p Main Office Mynor Fam M.D. 69625 401.9 Office Visit 09/19/2012 5:40p Main Office Mynor Fam M.D. 44945 723.1 786.50 401.1 465.9 793.11 Office Visit 09/12/2012 3:40p Main Office Mynor Fam M.D. 98662 723.1 786.50 Office Visit 06/24/2012 11:30a Main Office Robert Bingham 86654 E906.4 911.4 Office Visit 06/06/2012 8:20p Main Office Mynor Fam M.D. 39584 782.9 Office Visit 05/02/2012 12:20p Main Office Mynor Fam M.D. 11034 401.1 723.1 780.4 Office Visit 02/08/2012 2:50p Main Office Korina Crenshaw M.D. 69545 E906.4 782.1 919.4 Office Visit 12/28/2011 6:00p Main Office Mynor Fam M.D. 43533 782.9 401.1 V58.32 Office Visit 11/04/2011 1:40p Main Office Mynor Fam M.D. 31937 401.1 780.4 Office Visit 07/06/2011 1:00p Main Office Mynor Fam M.D. 34490 401.1 719.45 Office Visit 03/04/2011 1:20p Main Office Mynor Fam M.D. 57798 401.1 782.9 Office Visit 11/26/2010 1:00p Main Office Mynor Fam M.D. 24148 578.1 401.9 365.9 Office Visit 09/22/2010 5:20p Main Office Mynor Fam M.D. 40330 578.1 401.9 Office Visit 08/18/2010 2:00p Main Office Mynor Fam M.D. 48168 401.9 Office Visit 07/20/2010 10:10a Main Office Olaf Tatum M.D. 41918 E906.3 911.4 Office Visit 06/08/2010 6:20p Main Office Korina Crenshaw M.D. 77343 053.29 379.91 Office Visit 06/04/2010 10:00a Main Office Mynor Fam M.D. 74256 401.9 787.20 365.9 Office Visit 03/03/2010 1:00p Main Office Mynor Fam M.D. 42709 401.9 Office Visit 01/27/2010 12:10p Main Office Olaf Tatum M.D. 34234 E906.3 401.1 Office Visit 12/30/2009 9:30a Main Office Mynor Fam M.D. 78296 401.9 Office Visit 12/25/2009 3:10p Main Office Mynor Fam M.D. 11238 401.9 784.0 V76.41 Office Visit 07/16/2009 8:10p Main Office Lawrence Roblero M.D. 11138 989.5 Office Visit 04/15/2009 3:40p Main Office Mynor Fam M.D. 40961 782.9 Office Visit 03/29/2009 10:00a Main Office Mynor Fam M.D. 65955 786.2 719.45 Office Visit 11/20/2008 2:00p Main Office Lawrence Roblero M.D. 73464 401.1 911.4 Office Visit 11/06/2008 3:00p Main Office Lawrence Roblero M.D. 08234 331.89 786.50 Office Visit 03/01/2008 2:10p Main Office Olaf Tatum M.D. 72750 461.9 782.9 719.44 Office Visit 01/30/2008 11:40a Main Office Rasta Posada M.D. 49525 782.9 Office Visit 06/16/2007 2:00p Main Office Lawrence Roblero M.D. 85314 786.50 Office Visit 03/23/2007 1:45p Main Office Robert Bingham 99333 578.1 Office Visit 03/17/2006 1:15p Main Office Robert Bingham 00376 782.1 Office Visit 04/30/2005 2:00p Main Office Johnathan Goode M.D. 97186 785.6 Office Visit 11/11/2004 5:40p Main Office Lawrence Roblero M.D. 45008 723.1 Office Visit 12/07/2002 11:00a Main Office Lawrence Roblero M.D. 47516 782.1 Office Visit 05/16/2002 11:00a Main Office Lawrence Roblero M.D. 06741 Office Visit 05/17/2001 3:00p Main Office Lawrence Roblero M.D. 14962 Plan of Care 03/02/2018 - Mynor Fam M.D.M25.551 Pain in right hipComments:I told the patient and her family that she needed emergency room evaluation as I suspect she has either an occult hip fracture on the right right pelvic fracture making it impossible for her to live independently. I called the emergency room to review her case.
[2018-03-02 10:56] LABS: ABS Basophils 0.1 10^3/ul (0-0.2); ABS Eosinophils 0.2 10^3/ul (0-0.6); ABS Lymphocytes 1.5 10^3/ul (1.0-4.8); ABS Monocytes 0.6 10^3/ul (0-0.8); ABS Nucleated RBC 0 10^3/ul; Eosinophil % 2.9 % (0-6); Hematocrit 40 % (35-47); Hemoglobin 13.5 g/dl (12.0-16.0); Lymphocyte % 20.7 % (25-47); Mean Corpuscular HGB Conc 34 g/dl (31-36); Mean Corpuscular Hemoglobin 30 pg (27-31); Mean Corpuscular Volume 88 fL (80-97); Mean Platelet Volume 7.2 um3 (7.4-10.4); Nucleated Red Blood Cells % 0.1; Platelet Count 373 10^3/ul (150-450); Red Blood Count 4.52 10^6/ul (4.00-5.40); Red Cell Distribution Width 15 % (10.5-15); White Blood Count 7.4 10^3/ul (3.5-10.8)
[2018-03-02 11:16] LABS: EGFR Non-African American 81.5 (>60)
--- NOTE | 2018-03-02 11:29 | RAD ---
Indication: RIGHT hip pain post fall. Comparison: Radiographs of the same date. February 21, 2018 and February 09, 2013 CT exams. Technique: Multidetector CT pelvis without contrast. Multiplanar reformation with bone algorithm. Report: Artifact from LEFT hip prosthesis degrades image quality. Negative for superficial or deep soft tissue hematoma. No suspicious abnormality of the visualized abdominal pelvic viscera. Negative for ascites or free air within the [id number]. Negative for hernias within the [id number]. No CT evidence for RIGHT hip fracture. Negative for anterior pelvic ring fracture or pelvic joint diastases. Reference the sagittal reformatted series there is acute angulation at the anterior cortex of the S2 vertebral body new compared with the 2013 exam consistent with a minimally impacted sacral fracture. No associated sacral ala fracture evident. The RIGHT hip is remarkable for moderate osteoarthritis with osteophytosis, axial joint space narrowing, and acetabular roof subchondral sclerosis and cystic change as well as coxa profunda. IMPRESSION: #. No evidence for RIGHT hip fracture. #. Mild impaction fracture at the S2 vertebral body. No associated periosseous hematoma evident.
--- NOTE | 2018-03-02 11:40 | RAD ---
Indication: Pain post fall. Comparison: February 21, 2018 Technique: Noncontrast CT lumbar sacral spine. Multiplanar reformation. Report: Moderate T11, mild L2, and mild L3 osteoporotic compression fractures are unchanged. Refer to dedicated CT of the pelvis for description of mild probable acute impaction fracture at the S2 vertebral body. Negative for spondylolisthesis at any level. Negative for paraspinal hematoma. L2 level degenerative spondylosis and facet joint osteoarthritis. Disc space narrowing is severe at L4-L5 and moderately severe at L5-S1. Negative for fracture or spondylolysis at any level. Normal vertebral alignment without spondylolisthesis at any level. T12-L1: Unremarkable disc level for age without acquired spinal stenosis. L1-L2: Unremarkable disc level for age without acquired spinal stenosis. L2-L3: Unremarkable disc level for age without acquired spinal stenosis. L3-L4: Mild acquired central canal stenosis secondary to degenerative spondylosis and facet joint osteoarthritis. L4-L5: Moderate acquired central canal stenosis secondary to degenerative spondylosis and facet joint osteoarthritis. L5-S1: Moderate LEFT foraminal stenosis secondary to degenerative spondylosis and facet joint osteoarthritis. Peripheral vascular calcification without aneurysm of the abdominal aorta. IMPRESSION: #. Multiple chronic osteoporotic lower thoracic and lumbar spine compression fractures. #. Refer to dedicated CT of the pelvis for description of mild probable acute impaction fracture at the S2 vertebral body.
--- NOTE | 2018-03-02 13:02 | ED ---
Nancy Medina Emily, scribed for Amilcar Warner on 03/02/18 at 1038 . Lower Extremity - HPI Summary HPI Summary: This patient is an 87 year old F referred to [facility] [place] Fam accompanied by daughter with a chief complaint of R hip pain that began status post fall that occurred on 02/21/2018. The patient rates the pain 2/10 in severity. Symptoms aggravated by movement. Symptoms alleviated by nothing. Patient reports difficulty ambulating. Daughter reports that pt was seen in the ED following the fall, but there was no fracture at that point. 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 Mechanism Of Injury: Fall From A Standing Position Onset of Pain: Immediate Onset/Duration: Still Present Severity Initially: Mild Severity Currently: Mild Pain Intensity: 2 Pain Scale Used: 0-10 Numeric Timing: Constant Location: Is Discrete @ - R hip Associated Signs And Symptoms: Positive: Other - Positive difficulty ambulating Aggravating Factor(s): Movement Alleviating Factor(s): Nothing Able to Bear Weight: Yes - Allergies/Home Medications Allergies/Adverse Reactions: Allergies Allergy/AdvReac Type Severity Reaction Status Date / Time No Known Allergies Allergy Verified 05/07/14 09:13 Home Medications: Home Medications NK [No Home Medications Reported] 03/02/18 [History Confirmed 03/02/18] PMH/Surg Hx/FS Hx/Imm Hx Previously Healthy: No Cardiovascular History: Denies: Hx Myocardial Infarction Musculoskeletal History: Denies: Other Musculoskeletal History Neurological History: Reports: Hx Dementia - Surgical History Surgery Procedure, Year, and Place: TOTAL LEFT HIP Hx Anesthesia Reactions: No Infectious Disease History: No Infectious Disease History: Denies: Traveled Outside the [place] in Last 30 Days - Family History Known Family History: Negative: Cardiac Disease, Diabetes - Social History Occupation: Retired Lives: Alone Alcohol Use: None Hx Substance Use: No Substance Use Type: Reports: None Hx Tobacco Use: No Smoking Status (MU): Never Smoked Tobacco Review of Systems Negative: Fever Positive: Other - Positive R hip pain and difficulty ambulating All Other Systems Reviewed And Are Negative: Yes Physical Exam - Summary Physical Exam Summary: Appearance: Well appearing, no pain distress Skin: warm, dry, reflects adequate perfusion Head/face: normal Eyes: EOMI, VALERIANO ENT: normal Neck: supple, non-tender Respiratory: CTA, breath sounds present Cardiovascular: RRR, pulses symmetrical Abdomen: non-tender, soft Bowel: present Musculoskeletal: Tenderness in the R hip. Restricted ROM. Neuro: sensory motor intact, A&Ox3, No neurological deficit right leg Triage Information Reviewed: Yes Vital Signs On Initial Exam: Initial Vitals Temp Pulse Resp BP Pulse Ox 97.3 F 74 18 171/83 95 03/02/18 09:52 03/02/18 09:52 03/02/18 09:52 03/02/18 09:52 03/02/18 09:52 Vital Signs Reviewed: Yes Diagnostics - Vital Signs Vital Signs Temp Pulse Resp BP Pulse Ox 03/02/18 09:52 97.3 F 74 18 171/83 95 - Laboratory Lab Results: Lab Results 03/02/18 03/02/18 Range/Units 10:48 10:48 WBC 7.4 (3.5-10.8) 10^3/ul RBC 4.52 (4.00-5.40) 10^6/ul Hgb 13.5 (12.0-16.0) g/dl Hct 40 (35-47) % MCV 88 (80-97) fL MCH 30 (27-31) pg MCHC 34 (31-36) g/dl RDW 15 (10.5-15) % Plt Count 373 (150-450) 10^3/ul MPV 7.2 L (7.4-10.4) um3 Neut % (Auto) 67.9 (38-83) % Lymph % (Auto) 20.7 L (25-47) % [place] % (Auto) 7.5 H (0-7) % Eos % (Auto) 2.9 (0-6) % Baso % (Auto) 1.0 (0-2) % Absolute Neuts (auto) 5.0 (1.5-7.7) 10^3/ul Absolute Lymphs (auto) 1.5 (1.0-4.8) 10^3/ul Absolute Monos (auto) 0.6 (0-0.8) 10^3/ul Absolute Eos (auto) 0.2 (0-0.6) 10^3/ul Absolute Basos (auto) 0.1 (0-0.2) 10^3/ul Absolute Nucleated RBC 0 10^3/ul Nucleated RBC % 0.1 Sodium 139 (135-145) mmol/L Potassium 4.0 (3.5-5.0) mmol/L Chloride 102 (101-111) mmol/L Carbon Dioxide 32 (22-32) mmol/L Anion Gap 5 (2-11) mmol/L BUN 13 (6-24) mg/dL Creatinine 0.68 (0.51-0.95) mg/dL Est GFR ( Amer) 98.6 (>60) Est GFR (Non-Af Amer) 81.5 (>60) BUN/Creatinine Ratio 19.1 (8-20) Glucose 87 (70-100) mg/dL Calcium 9.2 (8.6-10.3) mg/dL Total Bilirubin 0.40 (0.2-1.0) mg/dL AST 28 (13-39) U/L ALT 26 (7-52) U/L Alkaline Phosphatase 83 (34-104) U/L Total Protein 6.9 (6.4-8.9) g/dL Albumin 3.7 (3.2-5.2) g/dL Globulin 3.2 (2-4) g/dL Albumin/Globulin Ratio 1.2 (1-3) Result Diagrams: 03/02/18 10:48 03/02/18 10:48 Lab Statement: Any lab studies that have been ordered have been reviewed, and results considered in the medical decision making process. - Radiology Hip/Pelvis XR Radiology Interpretation Completed By: Radiologist - Hip/Pelvis XR reveals, per radiologist, No radiographic evidence for RIGHT hip fracture. As x-rays may be negative with nondisplaced hip fracture if there is persistent clinical concern MRI or in setting of contraindication to MRI or limitation in emergent access to MRI CT would be suggested. Moderate osteoarthritis at the RIGHT hip. ED physician has reviewed this radiology report. - CT Pelvis CT CT Interpretation Completed By: Radiologist - Pelvis CT reveals, per radiologist , no evidence for right hip fracture. Mild impaction fracture at the S2 vertebral body. No associated periosseous hematoma evident. ED physician has reviewed this radiology report. Lumbar Spine CT CT Interpretation Completed By: Radiologist - Lumbar spine CT reveals, per radiologist, Multiple chronic osteoporotic lower thoracic and lumbar spine compression fractures. Refer to dedicated CT of the pelvis for description of mild probable acute impaction fracture at the S2 vertebral body. ED physician has reviewed this radiology report. Re-Evaluation - Re-Evaluation First Eval Re-Evaluation Time: 11:45 Change: Unchanged Comment: Re-evaluated pt. Discussed plan of care and results with pt Lower Extremity Course/Dx - Course Course Of Treatment: This patient is an 87 year old F referred to [facility] [place]. Fam accompanied by daughter with a chief complaint of R hip pain that began status post fall that occurred on 02/21/2018. Physical Exam Findings: Tenderness in the R hip. Restricted ROM. No neurological deficit right leg. Hip/ Pelvis XR reveals, per radiologist, No radiographic evidence for RIGHT hip fracture. As x-rays may be negative with nondisplaced hip fracture if there is persistent clinical concern MRI or in setting of contraindication to MRI or limitation in emergent access to MRI CT would be suggested. Moderate osteoarthritis at the RIGHT hip. Pelvis CT reveals, per radiologist, no evidence for right hip fracture. Mild impaction fracture at the S2 vertebral body. No associated periosseous hematoma evident. Lumbar spine CT reveals, per radiologist, Multiple chronic osteoporotic lower thoracic and lumbar spine compression fractures. Refer to dedicated CT of the pelvis for description of mild probable acute impaction fracture at the S2 vertebral body. Blood work and UA obtained. Consult with Dr. Kelley (hospitalist) at 1208. He agrees to admit pt for further evaluation. The patient is agreeable with this plan. - Diagnoses Differential Diagnosis/HQI/PQRI: Positive: Fracture (Closed), Sciatica, Other - pelvic fx/vertebral fx Provider Diagnoses: Closed compression fracture of sacrum, Back pain, Hip pain - Physician Notifications Discussed Care Of Patient With: Joesph Kelley Time Discussed With Above Provider: 12:08 Instructed by Provider To: Other - Consult with Dr. Kelley (hospitalist) at 1208. He agrees to admit pt for further evaluation. Discharge - Sign-Out/Discharge Documenting (check all that apply): Discharge/Admit/Transfer - Admit to [facility] - Discharge Plan Condition: Stable Disposition: ADMITTED TO [facility] - Billing Disposition and Condition Condition: STABLE Disposition: Admitted to [facility] The documentation as recorded by the Nancy whitaker Emily accurately reflects the service I personally performed and the decisions made by Timmy mann Emmanuel.
[2018-03-02] MEDS ORDERED: Acetaminophen TAB* 325 MG PO PRN (13:31)
[2018-03-02] MEDS ORDERED: Al Hydrox/Mg Hydrox/Simet LIQ* 30 ML UDC PO PRN (13:31)
[2018-03-02] MEDS ORDERED: Magnesium Hydroxide LIQ* 30 ML UDC PO PRN (13:31)
[2018-03-02] MEDS ORDERED: Albuterol 2.5 MG/3 ML NEB.SOL* (0.083%) INH PRN (13:31)
[2018-03-02] MEDS ORDERED: oxyCODONE/Acetamin 5/325 MG* TAB PO PRN (13:31)
[2018-03-02] MEDS ORDERED: Ondansetron INJ* 2 MG/ML VIAL IV PRN (13:31)
[2018-03-02] MEDS: traMADol TAB* 50 MG PO PRN (14:43)
[2018-03-02] MEDS: Heparin VIAL(*) 5000 UNITS/ML VIAL (FIVE THOUSAND) SUBCUT SCH ×2 (14:46→20:01)
--- NOTE | 2018-03-02 15:40 | HP ---
AMENDED REPORT NOW INCLUDES COSIGNER DESIGNATION - ESIGNED BEFORE ADJUSTMENT CC: Dr. Fam.* ADMISSION HISTORY AND PHYSICAL: DATE OF ADMISSION: 03/02/18 PATIENT OF: Dr. Narciso Kelley, as attending hospitalist.* (DICTATED BY GENTRY HENNING) PRIMARY CARE PHYSICIAN: Dr. Fam. CHIEF COMPLAINT: Hip and low back pain. HISTORY OF PRESENT ILLNESS: Ms. Padilla is a pleasant 87-year-old female, who carries remarkably no past medical history at all, who presented to the emergency room earlier today with complaints of persistent right hip pain radiating to her back. The patient apparently sustained a fall at home back on 02/21/18, for which she came to the emergency room for evaluation and had x- rays that revealed no significant bony injury. She was walking down her porch back then, where she tripped and fell striking her head and lower back. She had a posterior occipital laceration and head injury; however, it was unclear if the patient sustained any loss of consciousness. She had a brain CT back then that revealed no evidence of intracranial hemorrhage. She was eventually discharged home on Tylenol or Motrin as needed for pain. She has been having more and more difficulty at home ambulating. She has been living alone and very active in general. According to her both daughters, she has been slowing down since that fall for the past 10 days. This morning, her pain has gotten to the point that she presented again to the emergency room for further evaluation. She had additional imaging today including hip and pelvis x-ray that revealed no fractures that was followed by a pelvic CT scan that showed evidence of impacted S2 fracture. Given her ongoing pain and findings of her CT scan, we were asked to see the patient for further evaluation and to consider admission for pain management, physical therapy as well as possible placement for a short-term rehab if the patient is found to be a good candidate. At the time of admission, her pain is somehow tolerable. She denies any bilateral leg weakness, numbness, or tingling. There is no chest pain, shortness of breath, dizziness, headache, or syncope. PAST MEDICAL HISTORY: Essentially unremarkable. She denies any history of heart, liver, lung, or kidney disease. PAST SURGICAL HISTORY: Significant for total left hip arthroplasty. CURRENT MEDICATIONS: Her medications at home include Tylenol or Motrin as needed for pain. Otherwise, she has not taken any medication on a regular basis. ALLERGIES: She has no known drug allergies. FAMILY HISTORY: Denies any family history of cardiac disease, diabetes, or hypertension. SOCIAL HISTORY: The patient is retired. She lives alone. She is a nonsmoker, who denies alcohol intake. She has 2 daughters; both of them carry the healthcare proxy. REVIEW OF SYSTEMS: See HPI. Otherwise 14-point review of systems was discussed and was essentially negative. PHYSICAL EXAMINATION GENERAL: She is a pleasant elderly female, appears comfortable now after admission and in no acute distress or discomfort. VITAL SIGNS: Revealed a temperature of 97.8, pulse of 70, respirations of 16, O2 sats of 97% on room air, and blood pressure elevated at 184/98. HEENT: Head is normocephalic, atraumatic. Sclerae anicteric. PERRLA. EOMs intact. Oropharynx is pink and moist. NECK: Supple. Trachea midline. No cervical adenopathy or thyromegaly. LUNGS: Clear to auscultation bilaterally. HEART: Regular rate and rhythm. Normal S1 and S2 without rubs, murmurs, or gallops. BACK: With normal curvature and no CVA tenderness. There is point tenderness noted at the lower back along the distal lumbar and sacral spine. No ecchymosis or swelling noted. ABDOMEN: Soft, nontender, and nondistended. No hernias, masses, or hepatosplenomegaly. RECTAL: Exam deferred at this time. EXTREMITIES: Without cyanosis, clubbing, or edema. NEUROLOGIC: Grossly intact. She is awake, alert, and oriented x4. LABORATORY WORKUP: CBC with white count of 7000, hemoglobin 13.5, hematocrit of 40, and platelets of 373. Chemistry with sodium of 139, potassium of 4.0, chloride 102, CO2 of 32, BUN of 13, creatinine of 0.68. Her LFTs were within normal limits. Troponin was 0 when checked 2 weeks ago, and her glucose is 87. ACCESSORY DIAGNOSTIC DATA: As mentioned above, a pelvic CT scan with impacted S2 fracture noted. IMPRESSION: An 87-year-old female with no significant past medical history who sustained a fall at home approximately 10 days ago, who returned to the emergency room with persistent right hip and lower back pain and found on additional imaging today to have an impacted S2 fracture. ASSESSMENT AND PLAN: 1. Sacral vertebral impacted fracture. The patient will be admitted to the medical floor for pain management. Physical therapy and occupational therapy evaluation has been ordered and [facility] will be involved to discuss possible placement for short-term rehabilitation for the patient. Both her daughters expressed desire for her to go to short-term rehab since she lives alone at home and has been weak and unsteady on her gait since she fell 10 days ago. She appears to be comfortable at this point. 2. Hypertension. I suspect the patient has hypertension at this time likely due to her pain. I will reassess her after pain control and see if any medication will be needed to control her hypertension at this time. She has been asymptomatic and denies any chest pain or headaches. 3. DVT prophylaxis. The patient is a high risk given her age and mobility status and will be covered with subcutaneous heparin. 4. Code status. She is a full code. 5. Disposition. Admit to medical floor for pain management, physical therapy, and likely psychiatric social worker consultations to consider placement for a short-term rehabilitation. TIME SPENT: Approximately 55 minutes were spent admitting this patient, with greater than 50% spent on [id number] history taking and performing physical exam. I have discussed the case with my attending, Dr. Kelley, who is in agreement with the plan of care. GENTRY HENNING [id number]/[facility] #: [id number] UNIQUE
[2018-03-02] MEDS: Docusate CAP* 100 MG PO SCH (20:01)
[2018-03-03] MEDS: Morphine VIAL* 4 MG/ML VIAL (1 ml vial) IV PRN ×2 (01:43→23:50)
[2018-03-03] MEDS: Heparin VIAL(*) 5000 UNITS/ML VIAL (FIVE THOUSAND) SUBCUT SCH ×3 (05:51→21:23)
[2018-03-03 07:28] LABS: ABS Basophils 0.1 10^3/ul (0-0.2); ABS Eosinophils 0.1 10^3/ul (0-0.6); ABS Lymphocytes 1.5 10^3/ul (1.0-4.8); ABS Monocytes 0.6 10^3/ul (0-0.8); ABS Nucleated RBC 0 10^3/ul; Eosinophil % 1.6 % (0-6); Hematocrit 38 % (35-47); Hemoglobin 12.8 g/dl (12.0-16.0); Lymphocyte % 17.9 % (25-47); Mean Corpuscular HGB Conc 34 g/dl (31-36); Mean Corpuscular Hemoglobin 30 pg (27-31); Mean Corpuscular Volume 88 fL (80-97); Mean Platelet Volume 7.5 um3 (7.4-10.4); Nucleated Red Blood Cells % 0; Platelet Count 358 10^3/ul (150-450); Red Blood Count 4.31 10^6/ul (4.00-5.40); Red Cell Distribution Width 15 % (10.5-15); White Blood Count 8.3 10^3/ul (3.5-10.8)
[2018-03-03 07:42] LABS: EGFR Non-African American 104.1 (>60)
--- NOTE | 2018-03-03 07:52 | PN ---
Subjective Date of Service: 03/03/18 Interval History: Ms. Padilla denies any discomfort at the time of my examination while she is sitting up in the chair. She further denies chest pain, SOB, nausea, or abdominal pain. She is a bit confused about where she is but is easily re- oriented. Objective Active Medications: Acetaminophen (Tylenol Tab*) 650 mg PO Q4H PRN Al Hydrox/Mg Hydrox/Simethicone (Maalox Plus*) 30 ml PO Q6H PRN Albuterol (Ventolin 2.5 Mg/3 Ml Neb.Jeanie*) 2.5 mg INH [id number] AWAKE PRN Docusate Sodium (Colace Cap*) 100 mg PO BID SOHAN Heparin Sodium (Porcine) (Heparin Vial(*)) 5,000 units SUBCUT Q8HR SOHAN Magnesium Hydroxide (Milk Of Magnesia Liq*) 30 ml PO Q4H PRN Morphine Sulfate (Morphine Vial*) 2 mg IV Q2H PRN Ondansetron HCl (Zofran Inj*) 4 mg IV Q4H PRN Oxycodone/Acetaminophen (Percocet 5/325 Tab*) 1 tab PO Q4H PRN Tramadol HCl (Ultram*) 50 mg PO Q8H PRN Vital Signs: Temp Pulse Resp BP Pulse Ox 97.6 F 89 16 151/95 91 03/03/18 04:43 03/03/18 04:43 03/03/18 04:43 03/03/18 04:43 03/03/18 04:43 Oxygen Devices in Use Now: None Appearance: Female sitting up in chair in NAD Eyes: No Scleral Icterus Ears/Nose/Mouth/Throat: Mucous Membranes Moist Neck: Trachea Midline Respiratory: Symmetrical Chest Expansion and Respiratory Effort, Clear to Auscultation Cardiovascular: NL Sounds; No Murmurs; No JVD, No Edema Abdominal: NL Sounds; No Tenderness; No Distention Lymphatic: No Cervical Adenopathy Extremities: No Edema Skin: No Rash or Ulcers Neurological: NL Muscle Strength and Tone, - - Alert and oriented x 2 Nutrition: Taking PO's Result Diagrams: 03/03/18 07:08 03/03/18 07:08 Additional Lab and Data: . Assess/Plan/Problems-Billing Assessment: Ms. Padilla is an 87 yo female with no significant PMH who was admitted on with and S2 fracture after a mechanical fall. - Patient Problems (1) Sacral fracture, closed Comment: - Continue pain medications prn. - PT/OT. (2) DVT prophylaxis Comment: - Heparin Sq. (3) Hypertension Comment: - SBP 150-160s. - Start amlodipine now. (4) Full code status Comment: Status and Disposition: Inpatient. Will need subacute rehab vs NH placement
[2018-03-03] MEDS: amLODIPine TAB* 5 MG PO SCH (09:00)
[2018-03-03] MEDS: Docusate CAP* 100 MG PO SCH ×2 (09:00→21:23)
[2018-03-03] MEDS: traMADol TAB* 50 MG PO PRN (09:00)
[2018-03-04] MEDS: Heparin VIAL(*) 5000 UNITS/ML VIAL (FIVE THOUSAND) SUBCUT SCH ×3 (06:23→21:50)
--- NOTE | 2018-03-04 07:59 | PN ---
Subjective Date of Service: 03/04/18 Interval History: Ms. Padilla reports some low back pain but is unable to quantify it for me. She appears comfortable at rest. She denies chest pain, SOB, nausea, or abdominal pain. Objective Active Medications: Acetaminophen (Tylenol Tab*) 650 mg PO Q4H PRN Al Hydrox/Mg Hydrox/Simethicone (Maalox Plus*) 30 ml PO Q6H PRN Albuterol (Ventolin 2.5 Mg/3 Ml Neb.Jeanie*) 2.5 mg INH [id number] AWAKE PRN Amlodipine Besylate (Norvasc Tab*) 5 mg PO DAILY SOHAN Docusate Sodium (Colace Cap*) 100 mg PO BID SOHAN Heparin Sodium (Porcine) (Heparin Vial(*)) 5,000 units SUBCUT Q8HR SOHAN Magnesium Hydroxide (Milk Of Magnesia Liq*) 30 ml PO Q4H PRN Morphine Sulfate (Morphine Vial*) 2 mg IV Q2H PRN Ondansetron HCl (Zofran Inj*) 4 mg IV Q4H PRN Oxycodone/Acetaminophen (Percocet 5/325 Tab*) 1 tab PO Q4H PRN Tramadol HCl (Ultram*) 50 mg PO Q8H PRN Vital Signs: Temp Pulse Resp BP Pulse Ox 98.7 F 70 12 118/65 92 03/04/18 04:20 03/04/18 04:14 03/04/18 04:14 03/04/18 04:14 03/04/18 04:14 Oxygen Devices in Use Now: None Appearance: Female sitting up in chair with family at bedside in NAD Eyes: No Scleral Icterus Ears/Nose/Mouth/Throat: NL Teeth, Lips, Gums, Mucous Membranes Moist Neck: Trachea Midline Respiratory: Symmetrical Chest Expansion and Respiratory Effort, Clear to Auscultation Cardiovascular: NL Sounds; No Murmurs; No JVD, No Edema Abdominal: NL Sounds; No Tenderness; No Distention Lymphatic: No Cervical Adenopathy Extremities: No Edema Skin: No Rash or Ulcers Neurological: NL Muscle Strength and Tone, - - Alert to self and place only Nutrition: Taking PO's Result Diagrams: 03/03/18 07:08 03/03/18 07:08 Additional Lab and Data: . Assess/Plan/Problems-Billing Assessment: Ms. Padilla is an 87 yo female with no significant PMH who was admitted on with and S2 fracture after a mechanical fall. - Patient Problems (1) Sacral fracture, closed Comment: - Pain reasonably well controlled. Continue acetaminophen, oxycodone, and tramadol. - Continue PT/OT. (2) Hypertension Comment: - SBP improved - Continue amlodipine, started this admission. (3) DVT prophylaxis Comment: - Heparin Sq. (4) Full code status Comment: Status and Disposition: Inpatient. Will need subacute rehab vs NH placement
[2018-03-04] MEDS: Acetaminophen TAB* 325 MG PO SCH ×2 (09:25→19:44)
[2018-03-04] MEDS: amLODIPine TAB* 5 MG PO SCH (09:26)
[2018-03-04] MEDS: Docusate CAP* 100 MG PO SCH ×2 (09:26→19:43)
[2018-03-04] MEDS: traMADol TAB* 50 MG PO PRN (19:43)
[2018-03-04] MEDS: Melatonin 3 MG TAB PO SCH (21:37)
[2018-03-05] MEDS: Heparin VIAL(*) 5000 UNITS/ML VIAL (FIVE THOUSAND) SUBCUT SCH ×3 (05:44→20:12)
[2018-03-05] MEDS: Docusate CAP* 100 MG PO SCH ×2 (07:35→20:13)
[2018-03-05] MEDS: Acetaminophen TAB* 325 MG PO SCH ×2 (07:35→20:12)
[2018-03-05] MEDS: amLODIPine TAB* 5 MG PO SCH (07:35)
--- NOTE | 2018-03-05 08:45 | PN ---
Subjective Date of Service: 03/05/18 Interval History: Ms. Padilla reports that her back pain continues to improve. She denies other complaint including chest pain, SOB, nausea, or abdominal pain. She is tolerating oral intake well. Objective Active Medications: Acetaminophen (Tylenol Tab*) 975 mg PO BID SOHAN Al Hydrox/Mg Hydrox/Simethicone (Maalox Plus*) 30 ml PO Q6H PRN Albuterol (Ventolin 2.5 Mg/3 Ml Neb.Jeanie*) 2.5 mg INH [id number] AWAKE PRN Amlodipine Besylate (Norvasc Tab*) 5 mg PO DAILY SOHAN Docusate Sodium (Colace Cap*) 100 mg PO BID SOHAN Heparin Sodium (Porcine) (Heparin Vial(*)) 5,000 units SUBCUT Q8HR SOHAN Magnesium Hydroxide (Milk Of Magnesia Liq*) 30 ml PO Q4H PRN Melatonin (Melatonin) 3 mg PO BEDTIME SOHAN Ondansetron HCl (Zofran Inj*) 4 mg IV Q4H PRN Oxycodone/Acetaminophen (Percocet 5/325 Tab*) 1 tab PO Q4H PRN Tramadol HCl (Ultram*) 50 mg PO Q6H PRN Vital Signs: Temp Pulse Resp BP Pulse Ox 97.4 F 62 18 145/82 91 03/05/18 07:50 03/05/18 07:50 03/05/18 07:50 03/05/18 07:50 03/05/18 07:50 Oxygen Devices in Use Now: None Appearance: Elderly female sitting up in chair in NAD Eyes: No Scleral Icterus Ears/Nose/Mouth/Throat: Mucous Membranes Moist Respiratory: Symmetrical Chest Expansion and Respiratory Effort, Clear to Auscultation Cardiovascular: NL Sounds; No Murmurs; No JVD, No Edema Abdominal: NL Sounds; No Tenderness; No Distention Extremities: No Edema Skin: No Rash or Ulcers Neurological: NL Muscle Strength and Tone, - - Alert and oriented to self, pleasant and cooperative Nutrition: Taking PO's Result Diagrams: 03/03/18 07:08 03/03/18 07:08 Additional Lab and Data: . Assess/Plan/Problems-Billing Assessment: Ms. Padilla is an 87 yo female with no significant PMH who was admitted on with and S2 fracture after a mechanical fall. - Patient Problems (1) Sacral fracture, closed Comment: - Pain reasonably well controlled. Continue acetaminophen, oxycodone, and tramadol. - Continue PT/OT. (2) Hypertension Comment: - SBP improved - Continue amlodipine, started this admission. (3) DVT prophylaxis Comment: - Heparin Sq. (4) Full code status Comment: Status and Disposition: Inpatient. Will need subacute rehab vs NH placement
[2018-03-05 10:03] LABS: Urine Appearance Clear; Urine Blood Negative (Negative); Urine Color Yellow; Urine Ketones Negative (Negative); Urine Protein Negative (Negative); Urine Urobilinogen Negative (Negative)
[2018-03-05] MEDS: Melatonin 3 MG TAB PO SCH (21:43)
[2018-03-05] MEDS: traMADol TAB* 50 MG PO PRN (23:51)
[2018-03-06] MEDS: Heparin VIAL(*) 5000 UNITS/ML VIAL (FIVE THOUSAND) SUBCUT SCH (06:07)
[2018-03-06 07:56] VITALS: BP 167/91
[2018-03-06] MEDS: amLODIPine TAB* 5 MG PO SCH (07:58)
[2018-03-06] MEDS: Acetaminophen TAB* 325 MG PO SCH ×2 (08:01→08:06)
[2018-03-06] MEDS: Docusate CAP* 100 MG PO SCH (08:03)
--- NOTE | 2018-03-06 09:33 | PN ---
Subjective Date of Service: 03/06/18 Interval History: Ms. Padilla reports some low back pain today. She denies other complaint including chest pain, SOB, nausea, or abdominal pain. Her family is happy with the planned discharge to [facility]. Objective Active Medications: Acetaminophen (Tylenol Tab*) 975 mg PO BID SOHAN Al Hydrox/Mg Hydrox/Simethicone (Maalox Plus*) 30 ml PO Q6H PRN Albuterol (Ventolin 2.5 Mg/3 Ml Neb.Jeanie*) 2.5 mg INH [id number] AWAKE PRN Amlodipine Besylate (Norvasc Tab*) 5 mg PO DAILY SOHAN Docusate Sodium (Colace Cap*) 100 mg PO BID SOHAN Heparin Sodium (Porcine) (Heparin Vial(*)) 5,000 units SUBCUT Q8HR SOHAN Magnesium Hydroxide (Milk Of Magnesia Liq*) 30 ml PO Q4H PRN Melatonin (Melatonin) 3 mg PO BEDTIME SOHAN Ondansetron HCl (Zofran Inj*) 4 mg IV Q4H PRN Oxycodone/Acetaminophen (Percocet 5/325 Tab*) 1 tab PO Q4H PRN Tramadol HCl (Ultram*) 50 mg PO Q6H PRN Vital Signs: Temp Pulse Resp BP Pulse Ox 97.9 F 84 20 167/91 95 03/06/18 07:42 03/06/18 07:42 03/06/18 08:00 03/06/18 07:42 03/06/18 07:42 Oxygen Devices in Use Now: None Appearance: Female sitting up in chair in NAD Eyes: No Scleral Icterus Ears/Nose/Mouth/Throat: Mucous Membranes Moist Neck: Trachea Midline Respiratory: Symmetrical Chest Expansion and Respiratory Effort, Clear to Auscultation Cardiovascular: NL Sounds; No Murmurs; No JVD, No Edema Abdominal: NL Sounds; No Tenderness; No Distention Lymphatic: No Cervical Adenopathy Extremities: No Edema Skin: No Rash or Ulcers Neurological: NL Muscle Strength and Tone, - - Alert, oriented to self Nutrition: Taking PO's Result Diagrams: 03/03/18 07:08 03/03/18 07:08 Additional Lab and Data: . Assess/Plan/Problems-Billing Assessment: Ms. Padilla is an 87 yo female with no significant PMH who was admitted on with and S2 fracture after a mechanical fall. - Patient Problems (1) Sacral fracture, closed Comment: - Pain reasonably well controlled. Continue acetaminophen, oxycodone, and tramadol. - Continue PT/OT. (2) Hypertension Comment: - SBP improved - Continue amlodipine, started this admission. (3) DVT prophylaxis Comment: - Heparin Sq. (4) Full code status Comment: Status and Disposition: Inpatient. Discharge to [facility].
--- NOTE | 2018-03-06 10:36 | DS ---
CC: Dr. Fam; [facility] * [facility] MEDICINE DISCHARGE SUMMARY: DATE OF ADMISSION: 03/02/18 DATE OF DISCHARGE: 03/06/18 PRIMARY CARE PHYSICIAN: Dr. Fam ATTENDING PHYSICIAN: Dr. Marla Owusu * (dictation provided by Ruby Fallon NP ). PRIMARY DIAGNOSES: 1. S2 fracture. 2. Hypertension. SECONDARY DIAGNOSIS: None. MEDICATIONS AT THE TIME OF DISCHARGE: 1. Tramadol 50 mg p.o. q.6 hours p.r.n. 2. Oxycodone with acetaminophen 5/325 1 tab p.o. q. 4 hours p.r.n. 3. Amlodipine 5 mg p.o. daily. 4. Senna 1 tab p.o. at bedtime. 5. Magnesium hydroxide 30 mL p.o. q.4 hours p.r.n. 6. Docusate 100 mg p.o. b.i.d. 7. Tylenol 975 mg p.o. b.i.d. HOSPITAL COURSE: Ms. Padilla is an 87-year-old female with no known past medical history who presented to the hospital on 03/02/18 with concern for hip and low back pain. Please see dictate H and P from [place] [facility] for complete details. In brief, the patient was reported to have fallen at home on 02/21/18. She had evaluation in the emergency room with x-rays that revealed no significant bony injury. Since being discharged from the ED, she had more difficulty ambulating. On return to the ED, she had additional imaging with a hip and pelvis x-ray, which showed an impacted S2 fracture. Ms. Padilla was admitted to the hospital for pain management. She has had reasonable control of her pain while on oxycodone and tramadol and Tylenol. During this hospitalization, she was noted to have a blood pressure that was elevated into the 150s. For that reason she has been started on amlodipine 5 mg p.o. daily. Her blood pressure remains a little bit elevated at 167/91 this morning, and I recommend that in the next week or so, her amlodipine be adjusted or additional agents be added as indicated. Ms. Padilla is medically stable for discharge to [facility]. DISPOSITION: [facility]. DIET: Low salt. ACTIVITY: As tolerated. FOLLOWUP PLANS: Please follow up with the providers at [facility] regarding ongoing management of medical problems including hypertension. TIME SPENT: Approximately 60 minutes were spent on the discharge of this patient, more than half the time spent with the patient and her daughter at the bedside reviewing the events leading up to and during this hospitalization, performing the physical examination, and reviewing my plan of care. RUBY FALLON NP [id number]/CPS #: [id number] UNIQUE
== END 2018-03-06 11:15 | DRG 552 ==
LOC: ED 09:51 → MED 12:08
PROVIDERS: ADMIT Internal Medicine; ATTEND Internal Medicine
DX: S32.19XA Other fracture of sacrum, initial encounter for closed fracture (principal); W01.0XXA Fall on same level from slipping, tripping and stumbling without subsequent striking against object, initial encounter; Y93.01 Activity, walking, marching and hiking; I10 Essential (primary) hypertension; Z96.642 Presence of left artificial hip joint; Y92.098 Other place in other non-institutional residence as the place of occurrence of the external cause
CPT/HCPCS: 36415; 72131; 72192; 80048; 80053; 81003; 81015; 85025; 87086; 99284; A9270-GY; G8978-GP-CL; G8979-GP-CI; G8987-GO-CK; G8988-GO-CI; J1644; J2270; J2405